=== PATIENT | female | born 1990 | race Two or more races ===

== ENCOUNTER 2016-05-19 16:55 | Inpatient (IN) | payer OTHER ==
--- NOTE | 2016-05-19 17:34 | PDOC ---
History of Present Illness - General History Source: Care Provider, EMS, Other Exam Limitations: No Limitations - History of Present Illness Initial Comments: 05/19/16 18:16 The patient is a 26 year old female, (accompanied by health aide), with a significant past history of seizures, TBI, severe intellectual disabilities, autism, gait disorder and polycystic ovaries, presenting to the ED for extremity swelling and sob. She was recently admitted at [facility] for increase amount of seizures and was admitted for EEG monitoring and was discharged on at the time of discharge patient had arm swelling due to infiltrated IV. As per aid, the swelling has been persistent and did not go down with elevation. Also aid noticed bilateral feet swelling. Aid thought patient had difficulty breathing as aide describes it taking a deep breath before she eats/sits and various other activities. History was obtained by patients health aides. As per the patients aide, the patients nurse suggested she be brought to the ED for bilateral LE swelling. Patient sometiems speaks random words but does not realyl answer questions. As per aide no recent fevers, chills, loss of appetite, cough, abdominal pain, nausea vomiting, diarrhea. Patient seems to be her baseline mental status. PCP: Dr. Marina Menjivar, [facility] <Aleah Kumar - Last Filed: 05/19/16 18:15> <Nitish Ortiz - Last Filed: 05/24/16 09:48> - General Chief Complaint: Edema Stated Complaint: SWELLING HANDS AND FEET Time Seen by Provider: 05/19/16 17:21 Past History <Aleah Kumar - Last Filed: 05/19/16 18:15> - Past Medical History Seizures: Yes - Surgical History Abdominal Surgery: Yes - Psycho/Social/Smoking Cessation Hx Anxiety: No Suicidal Ideation: No Smoking History: Never smoked Hx Alcohol Use: No Drug/Substance Use Hx: No Substance Use Type: None <Nitish Ortiz - Last Filed: 05/24/16 09:48> - Past Medical History Allergies/Adverse Reactions: Allergies Allergy/AdvReac Type Severity Reaction Status Date / Time strawberry Allergy Hives Verified 05/19/16 18:19 Home Medications: Ambulatory Orders Acetaminophen [Tylenol] 650 mg PO QID PRN 05/19/16 Benztropine Mesylate [Cogentin -] 1 mg PO BID 05/19/16 Cholecalciferol (Vitamin D3) [Vitamin D3] 2,000 unit PO DAILY 05/19/16 Clobazam [Onfi -] 10 mg PO BID 05/19/16 Docusate Sodium [Colace -] 200 mg PO HS 05/19/16 Haloperidol [Haldol -] 2 mg PO DAILY 05/19/16 Haloperidol [Haldol -] 5 mg PO DAILY 05/19/16 Lacosamide [Vimpat -] 200 mg PO DAILY 05/19/16 Levetiracetam [Keppra Oral Solution -] 22.5 ml PO BID 05/19/16 Levonorgestrel 0 mg PO DAILY 05/19/16 Metformin HCl [Glucophage] 1,000 mg PO BID 05/19/16 Polyethylene Glycol 3350 [Miralax 119 gm Btl -] 17 gm PO DAILY 05/19/16 Pyridoxine HCl (B-6) [Vitamin B6 -] 50 mg PO DAILY 05/19/16 Salicylic Acid [Selsun Blue] 325 ml TP BID 05/19/16 Thiamine HCl [B-1] 100 mg PO BID 05/19/16 Topiramate 200 mg PO BID 05/19/16 Vits A and D/White Pet/Lanolin [Desitin Clear Ointment] 99 gm TP BID 05/19/16 Rivaroxaban [Xarelto] 15 mg PO BID #42 tab.ds.pk 05/21/16 Rivaroxaban [Xarelto] 20 mg PO DAILY #30 tab.ds.pk 05/21/16 Review of Systems - Review of Systems Able to Perform ROS?: No Comments:: 05/19/16 18:16 Unable to obtain. <Aleah Kumar - Last Filed: 05/19/16 18:15> *Physical Exam - Physical Exam Comments: 05/19/16 18:16 GENERAL: The patient is awake, alert, looking around Nontoxic - in no acute distress. HEAD: Normocephalic, atraumatic. EYES: extraocular movements intact, sclera anicteric, conjunctiva clear. ENT: Normal voice, Moist mucous membranes, hypertrophic gums NECK: Normal range of motion, supple LUNGS: Breath sounds equal, clear to auscultation bilaterally HEART: Regular rate and rhythm, normal S1 and S2 without murmur, rub or gallop. ABDOMEN: Soft, nontender, normoactive bowel sounds. No guarding, no rebound. . No CVA tenderness EXTREMITIES: Normal range of motion, minimal edema of RUE, some ecchymotic olmos on R a/c, no tenderness, minimal edmea of b/l feet, no edema of lower extremities otherwise, negative homans sign. NEUROLOGICAL: No facial assymetry, moving all 4 extremities spontaneously and symmetrically PSYCH: unable to assess, SKIN: Warm, Dry, normal turgor, <Aleah Kumar - Last Filed: 05/19/16 18:15> ED Treatment Course - LABORATORY CBC & Chemistry Diagram: 05/21/16 06:30 05/21/16 06:30 <Nitish Ortiz - Last Filed: 05/24/16 09:48> Medical Decision Making - Medical Decision Making 05/19/16 17:30 26y F hx of tbi, intractible seizures, sent to the ED for evaluation of swelling of her R arm and b/l feet. Pt was recently at [facility] for evaluation of increasing falls and intractible seizures, was d/c'd back to to her facility on 05/17, she did have iv infilration with arm swelling of R arm, since then her swelling hasnt decreased substantially even with elevation. The patients aide also noticed that the pt had a couple of episodes where she was breathing more deeply than usual - no associated tachypnea, cough, fever/chills or other obvious dicomfort. case discussed with dr. Szymanski in the ED at [facility] 05/09 - admitted to [facility] ER - hx of TBI at 2, transferred by neuro clinic for evaluation to ED, for admission and evaluation increased falls/ intractible seizures. Pt was admitted for monitoring, had video eeg with +seizure activity. her dilantin level was titrated up. last lab work on 05/17 showed nromal cbc, cmp showd cl 112, bicarb 21, ca slightly low, alb slightly low, dilantin level of 8.8 05/19/16 17:40 suspect her arm edema is secondary to IV infiltration. will ck US to r/o dvt no appreciable swelling of the LE. will ck labs to r/o anemia, metabolic dernagement, cxr to r/o pna pts vitals are normal here, no apparent respiraotry distress if negative will dc back to her facility with pmd fu. 05/19/16 18:41 case was discussed with HCP Eugenia Alvarez (aunt) if any positive results, will have dr. montague notify the aunt will sign the patient out to dr. montague to reassess and disposition the patient 05/19/16 19:03 <Nitish Ortiz - Last Filed: 05/24/16 09:48> *DC/Admit/Observation/Transfer - Attestations Scribe Attestion: 05/19/16 18:17 Documentation prepared by CON Shah, acting as emergency medical service manager for Nitish Ortiz MD. <Aleah Kumar - Last Filed: 05/19/16 18:15> <Nitish Ortiz - Last Filed: 05/24/16 09:48> Diagnosis at time of Disposition: Acute thrombosis of basilic vein - Discharge Dispostion Disposition: HOME - Prescriptions
--- NOTE | 2016-05-19 20:03 | PDOC ---
*Physical Exam - Vital Signs Last Vital Signs Temp Pulse Resp BP Pulse Ox 99.1 F 89 22 126/95 100 05/19/16 16:55 05/19/16 16:55 05/19/16 16:55 05/19/16 16:55 05/19/16 16:55 <Pia Gonzalez - Last Filed: 05/19/16 20:37> - Vital Signs Last Vital Signs Temp Pulse Resp BP Pulse Ox 99.1 F 89 22 126/95 100 05/19/16 16:55 05/19/16 16:55 05/19/16 16:55 05/19/16 16:55 05/19/16 16:55 <Jaden Griffith - Last Filed: 05/19/16 23:31> ED Treatment Course - RADIOLOGY Radiograph Interpretation: 05/19/16 20:28 EXAM: VENOUS DUPLEX was read by Lisa Greenfield D.O. at 19:56 EST EXAM UNILATERAL: RIGHT ARM REASON FOR EXAM: Pain Swelling COMPARISON: None FINDINGS: Transverse and longitudinal views obtained. There is thrombus within the basilic vein to proximal ulnar artery in the proximal forearm. There is normal color flow filling the vessels with compressibility and phasic flow within the jugular, axillary, brachial, radial veins. Limited visibility of the superficial cephalic vein. Good flow and phasicity detected within the subclavian vein. There is no suspicious solid or cystic mass. IMPRESSION: Positive thrombus within the superficial basilic vein to proximal ulnar artery in the proximal RIGHT forearm. EXAM: Portable chest x-ray was read by Jaswant Scott MD at 20:33 EST HISTORY:Shortness of breath FINDINGS:Portable AP view of the chest is available. A battery overlies the left thorax. The heart and midline structures are normal and the lungs appear clear. No acute osseous abnormality is seen. IMPRESSION: No visible active disease <Pia Gonzalez - Last Filed: 05/19/16 20:37> - LABORATORY CBC & Chemistry Diagram: 05/19/16 22:38 05/19/16 22:38 <Jaden Griffith - Last Filed: 05/19/16 23:31> Medical Decision Making - Medical Decision Making 05/19/16 20:03 I have discussed the patient's case with hospitalist, Dr. Solis, who will accept the patient's admission after labs are obtained. Dr. Solis advises to obtain the BUN and Creatinine before administering Lovenox. <Pia Gonzalez - Last Filed: 05/19/16 20:37> *DC/Admit/Observation/Transfer - Attestations Scribe Attestion: 05/19/16 20:28 Documentation prepared by Pia Gonzalez, acting as medical office administrator for Jaden Griffith MD, MD <Pia Gonzalez - Last Filed: 05/19/16 20:37> - Discharge Dispostion Admit: Yes <Jaden Griffith - Last Filed: 05/19/16 23:31> Diagnosis at time of Disposition: Acute thrombosis of basilic vein Qualifiers: Laterality: right Qualified Code(s): I82.611 - Acute embolism and thrombosis of superficial veins of right upper extremity - Discharge Dispostion Condition at time of disposition: Stable
[2016-05-19 22:42] LABS: VENOUS PH 7.36 (7.31-7.41)
[2016-05-19 22:43] LABS: VENOUS BLOOD GAS HCO3 24.6 meq/L (22-29)
[2016-05-19 22:57] LABS: BASOPHIL 1.3 % (0-2.0); EOSINOPHIL 0.4 % (0-4.5); MCH 31.7 pg (25.7-33.7); MCHC 33.7 g/dl (32.0-36.0); MEAN PLT VOLUME 7.2 fl (7.5-11.1); PLATELET COUNT 225 K/MM3 (134-434); WHITE BLOOD COUNT 6.9 K/mm3 (4.0-10.0)
[2016-05-19 23:01] LABS: INR 1.09 (0.82-1.09)
[2016-05-19 23:03] LABS: ACTIVATED PTT 31.7 SECONDS (26.9-34.4)
[2016-05-19 23:11] LABS: ALBUMIN 3.4 g/dl (3.4-5.0); ANION GAP 10 (8-16); BILIRUBIN,TOTAL 0.3 mg/dL (0.2-1.0); CALCIUM 8.1 mg/dL (8.5-10.1); CO2 24 mmol/L (21-32); CREATININE 0.6 mg/dL (0.55-1.02); GLUCOSE,RANDOM 71 mg/dL (74-106); SGOT/AST 18 U/L (15-37); SGPT/ALT 25 U/L (12-78)
[2016-05-19 23:12] LABS: ALK PHOS 88 U/L (45-117); TOT PROT 6.7 g/dl (6.4-8.2)
[2016-05-19] MEDS ORDERED: ENOXAPARIN NA (PORCINE) 60 MG/0.6 ML DISP.SYRIN SQ SCH (23:30)
[2016-05-19] MEDS ORDERED: ENOXAPARIN NA (PORCINE) 60 MG/0.6 ML DISP.SYRIN SQ ONE (23:30)
[2016-05-19] MEDS ORDERED: LORAZEPAM CARPU-JECT 2 MG/ML DISP.SYRIN IVPUSH PRN (23:50)
[2016-05-20] MEDS ORDERED: ENOXAPARIN NA (PORCINE) 60 MG/0.6 ML DISP.SYRIN SQ ONE (00:02)
[2016-05-20] MEDS ORDERED: ONDANSETRON 4 MG/2 ML VIAL IVPB PRN (00:06)
[2016-05-20] MEDS ORDERED: ACETAMINOPHEN 325 MG TABLET (FP) PO PRN (00:08)
--- NOTE | 2016-05-20 00:17 | HP ---
Admitting History and Physical - Admission Chief Complaint: swelling to R arm, lower leg swelling History of Present Illness: 26 yo f from [facility] hx of seizure disorder(VNS placement), PCOS, TBI , severe intellectual disabilities, autism, gait disorder and polycystic ovaries , presenting to the ED for extremity swelling and sob. Patient unable to give history. Per medical documentation She was recently admitted at [facility] for increase amount of seizures and was admitted for EEG monitoring and was discharged on 05/17 at the time of discharge patient had arm swelling due to infiltrated IV. As per aid, the swelling has been persistent and did not go down with elevation. Also aid noticed bilateral feet swelling. Aid thought patient had difficulty breathing as aide describes it taking a deep breath before she eats/sits and various other activities. Per HCP patient had fall 2 weeks ago hit her head and lost a tooth. She states that it was not a drop seizure. PSH/PMH-HCP Eugenia Alvarez (aunt) Social- Lives at skilled nursing Famhx- Unobtainable HCP Eugenia Alvarez (aunt) ROS unable to obtain Physical: General- in nad, alert HENT- at/nc, arik, neck supple, trachea midline RESP- no cough, no ronchi, no wheeze no rales, no accessory muscle use CARD- s1s2 heard, no jvd, R forearm and hand swelling, LLE swelling, extremity pulses +2, toes downgoing Skin- clean, intact PSych- intellectual disability, says 1 or 2 words but not conversational Neuro- alert and oriented Gi-soft non-tender, no rebound, no guarding, no distention, no masses Prob list Seizure disorder Thrombus in R forearm Autism Pcos Arm swelling Leg swelling Imaging: Duplex R arm positive for thrombus in superficial basilic vein proximal ulnar vein CXR negative for process EKG pending CTH pending Duplex of BLE pending CTA chest pending A/P 26 yo f from [facility] with hx of seizure disorder(VNS placement), PCOS , TBI, severe intellectual disabilities, autism, gait disorder and polycystic ovaries, presenting to the ED for extremity swelling and sob admitted for evaluation of their emergent condition 1.Thrombus in R forearm, DVT bilateral LE R forearm, and bilateral lower extremity swelling Given Lovenox in ER Leg and Arm elevation, Pain control Continue Lovenox Vascular consult Heme consult 2. Seizure disorder Seizure precautions Continue home meds Check Keppra levels 3. Autism 4. PCOS Hold Metformin 5. Ambulation problem, ?dVt Per patient's HCAP, patient had fall 2 weeks ago and hit head, she has been having trouble walking since. Will check CTH r/o acute pathology Found to have bilateral dvt 6. Reported SOB, ?PE CXR appears negative for acute process Found to have bilateral dvt in legs, and thrombus in forearm which raises concern for PE Wells score moderate Will do CTA Continue Lovenox FEn Reg diet DVT prophy OOB, Full dose Lovenox Dispo- Requires >2mn stay for R forearm thrombus History Source: Significant Other, Medical Record Limitations to Obtaining History: No Limitations - Smoking History Smoking history: Never smoked Have you smoked in the past 12 months: No - Alcohol/Substance Use Hx Alcohol Use: No Home Medications - Allergies Allergies/Adverse Reactions: Allergies Allergy/AdvReac Type Severity Reaction Status Date / Time strawberry Allergy Hives Verified 05/19/16 18:19 - Home Medications Home Medications: Ambulatory Orders Acetaminophen [Tylenol] 650 mg PO QID PRN 05/19/16 Benztropine Mesylate [Cogentin -] 1 mg PO BID 05/19/16 Cholecalciferol (Vitamin D3) [Vitamin D3] 2,000 unit PO DAILY 05/19/16 Clobazam [Onfi -] 10 mg PO BID 05/19/16 Docusate Sodium [Colace -] 200 mg PO HS 05/19/16 Haloperidol [Haldol -] 2 mg PO DAILY 05/19/16 Haloperidol [Haldol -] 5 mg PO DAILY 05/19/16 Lacosamide [Vimpat -] 200 mg PO DAILY 05/19/16 Levetiracetam [Keppra Oral Solution -] 22.5 ml PO BID 05/19/16 Levonorgestrel 0 mg PO DAILY 05/19/16 Metformin HCl [Glucophage] 1,000 mg PO BID 05/19/16 Polyethylene Glycol 3350 [Miralax (For Daily Use) -] 17 gm PO DAILY 05/19/16 Pyridoxine HCl (B-6) [Vitamin B6] 50 mg PO DAILY 05/19/16 Salicylic Acid [Selsun Blue] 325 ml TP BID 05/19/16 Thiamine HCl [B-1] 100 mg PO BID 05/19/16 Topiramate 200 mg PO BID 05/19/16 Vits A and D/White Pet/Lanolin [Desitin Clear Ointment] 99 gm TP BID 05/19/16 Physical Examination Vital Signs: Vital Signs Temperature 99.1 F 05/19/16 16:55 Pulse Rate 89 05/19/16 16:55 Respiratory Rate 22 05/19/16 16:55 Blood Pressure 126/95 05/19/16 16:55 O2 Sat by Pulse Oximetry (%) 100 05/19/16 16:55 Labs: CBC, BMP 05/19/16 22:38 05/19/16 22:38 Visit type - Emergency Visit Emergency Visit: Yes ED Registration Date: 05/19/16 Care time: The patient presented to the Emergency Department on the above date and was hospitalized for further evaluation of their emergent condition. - New Patient This patient is new to me today: Yes Date on this admission: 05/20/16 - Critical Care Critical Care patient: No
[2016-05-20 03:21] VITALS: BMI 24.3
[2016-05-20] MEDS ORDERED: HALOPERIDOL 5 MG TABLET (FP) PO SCH ×2 (07:00→20:00)
[2016-05-20 08:38] LABS: ALBUMIN 3.1 g/dl (3.4-5.0); ANION GAP 11 (8-16); CALCIUM 8.2 mg/dL (8.5-10.1); CO2 24 mmol/L (21-32); GLUCOSE,RANDOM 66 mg/dL (74-106)
[2016-05-20 08:41] LABS: ALK PHOS 83 U/L (45-117); BILIRUBIN,TOTAL 0.3 mg/dL (0.2-1.0); CREATININE 0.5 mg/dL (0.55-1.02); SGOT/AST 27 U/L (15-37); SGPT/ALT 25 U/L (12-78); TOT PROT 6.2 g/dl (6.4-8.2)
[2016-05-20] MEDS: ENOXAPARIN NA (PORCINE) 60 MG/0.6 ML DISP.SYRIN SQ SCH ×2 (09:54→21:54)
[2016-05-20] MEDS: PYRIDOXINE HCL (B-6) 50 MG TABLET (FP) PO SCH (09:54)
[2016-05-20] MEDS: CHOLECALCIFEROL (VITAMIN D3) 1,000 UNIT TABLET (FP) PO SCH (09:54)
[2016-05-20] MEDS: THIAMINE HCL 100 MG TABLET (FP) PO SCH ×2 (09:54→21:54)
[2016-05-20] MEDS: cloBAZam 10 MG TABLET PO SCH ×2 (09:54→21:54)
[2016-05-20] MEDS: TOPIRAMATE 200 MG TABLET (FP) PO SCH ×2 (09:55→22:35)
[2016-05-20] MEDS: BENZTROPINE MESYLATE 1 MG TABLET (FP) PO SCH ×2 (09:56→22:35)
[2016-05-20] MEDS: HALOPERIDOL 2 MG TABLET PO SCH (09:57)
[2016-05-20] MEDS: levETIRAcetam 500 MG/5 ML ORAL SOLUTION (UNIT-DOSE CUPS) PO SCH ×2 (09:57→22:43)
[2016-05-20] MEDS: POLYETHYLENE GLYCOL 3350 119 GM BTL PO SCH (09:58)
[2016-05-20] MEDS ORDERED: ENOXAPARIN NA (PORCINE) 60 MG/0.6 ML DISP.SYRIN SQ SCH (10:00)
[2016-05-20] MEDS ORDERED: levETIRAcetam 500 MG/5 ML ORAL SOLUTION (UNIT-DOSE CUPS) PO SCH (10:00)
[2016-05-20] MEDS ORDERED: LACOSAMIDE 50 MG TABLET PO SCH (10:00)
--- NOTE | 2016-05-20 13:41 | PN ---
Progress Note (short form) - Note Progress Note: Vascular Surgery Pt seen and examined. Studies show right basilic vein SVT Pt also has bilateral lower ext DVT's, however I cannot open the study on the computer. Pending CTA chest to rule out PE Anticoagulation for DVT in bilateral lower ext for 6 months. Warm compresses to right forearm for SVT. Will follow. aMyo Camarena dO
--- NOTE | 2016-05-20 14:31 | PN ---
Teaching Attending Note Name of Resident: Amber Neal ATTENDING PHYSICIAN STATEMENT I saw and evaluated the patient. I reviewed the resident's note and discussed the case with the resident. I agree with the resident's findings and plan as documented. SUBJECTIVE:non-verbal. resting in bed comfortable OBJECTIVE: Last Vital Signs Temp Pulse Resp BP Pulse Ox 97.4 F L 78 18 111/76 99 05/20/16 14:00 05/20/16 14:00 05/20/16 14:00 05/20/16 10:00 05/20/16 03:19 General NAD CV S1 S2 RRR no murmur/rub/gallop Extremities swelling limited to the R hand, no tenderness along the arm B/L LE no swelling of the legs, non tender negative Tawanna sign ASSESSMENT AND PLAN: 26yo F with PMH autism, seizure, TBI, PCOS presented to the ER and was admitted for further evaluation of their emergent condition 1. B/L LE DVT- extensive B/L DVT and superficial DVT of the RUE. possibly induced from limited mobility and hospital stay (unaware of length of recent hospital course). will d/c CTA of the chest as determining if pt has PE would not change our management at this time. no signs of R heart strain. hemodynamically stable. saturating 98% on RA. no tachycardia. agree with vascular at this time would anticoagulate at this time. no need for surgical intervention. on full dose lovenox. will determine if this will be able to administered at facility vs change to NOAC. awaiting heme input. she would also benefit from hypercoagulable workup as outpatient 2. Seizure- no seizure like activity witnessed. keppra levels pending (keppra dose recently adjusted), seizure precautions. cont home regimen 3. PCOS- will resume metformin as no need for contrast at this time 4. autism
[2016-05-20 14:33] LABS: EOSINOPHIL 0.5 % (0-4.5); MCH 31.6 pg (25.7-33.7); MCHC 33.3 g/dl (32.0-36.0); MEAN CELL VOLUME 94.9 fl (80-96); MEAN PLT VOLUME 7.6 fl (7.5-11.1); NEUTROPHILS 48.3 % (42.8-82.8); PLATELET COUNT 205 K/MM3 (134-434); RDW 14.2 % (11.6-15.6); WHITE BLOOD COUNT 5.9 K/mm3 (4.0-10.0)
--- NOTE | 2016-05-20 14:33 | PN ---
Physical Exam: SUBJECTIVE: Patient seen and examined at bedside this am. Patient non verbal, aide by her side. She denies any events overnight. Shortness of breath has improved. Swelling of feet has decreased as well as right arm erythema, according to the aide. Still with right hand swelling. Denies chest pain, fever , chills. n, v. OBJECTIVE: Vital Signs Period Temp Pulse Resp BP Sys/Cui Pulse Ox Last 24 Hr 97.4 F-98.1 F 77-84 18-18 101-122/61-83 99-100 GENERAL: The patient is awake, alert, mental retardation, cognitive impairment, in no acute distress. HEAD: Normal with no signs of trauma. EYES: PERRL, extraocular movements intact, sclera anicteric, conjunctiva clear. No ptosis. ENT: moist mucous membranes, drooling. LUNGS: Breath sounds equal, clear to auscultation bilaterally, no wheezes, no crackles, no accessory muscle use. HEART: Regular rate and rhythm, S1, S2 without murmur, rub or gallop. ABDOMEN: Soft, nontender, nondistended, normoactive bowel sounds, no guarding, no rebound, no hepatosplenomegaly, no masses. EXTREMITIES: 2+ pulses, warm, well-perfused, Right hand edema, no erythema, did not appreciate LE edema or erythema NEUROLOGICAL: Cranial nerves II through XII grossly intact. Normal speech, gait not observed. SKIN: Warm, dry, normal turgor, no rashes or lesions noted CBC, BMP 05/20/16 06:38 Active Medications Generic Name Dose Route Start Last Admin Trade Name Clive PRN Reason Stop Dose Admin Acetaminophen 650 mg 05/20/16 00:08 Tylenol - PO Q4H PRN FEVER OR PAIN Benztropine Mesylate 1 mg 05/20/16 10:00 05/20/16 09:56 Cogentin - PO 1 mg BID JADE Administration Cholecalciferol 2,000 unit 05/20/16 10:00 05/20/16 09:54 Vitamin D3 - PO 2,000 unit DAILY JADE Administration Clobazam 10 mg 05/20/16 10:00 05/20/16 09:54 Onfi - PO 10 mg BID JADE Administration Docusate Sodium 200 mg 05/20/16 22:00 Colace - PO HS JADE Enoxaparin Sodium 60 mg 05/20/16 10:00 05/20/16 09:54 Lovenox - SQ 60 mg BID [facility] Administration Haloperidol 2 mg 05/20/16 10:00 05/20/16 09:57 Haldol - PO 2 mg DAILY JADE Administration Haloperidol 5 mg 05/20/16 20:00 Haldol - PO DAILY@2000 [facility] Lacosamide 200 mg 05/20/16 10:00 05/20/16 11:35 Vimpat - PO Not Given BID [facility] Levetiracetam 1,500 mg 05/20/16 10:00 05/20/16 09:57 Keppra Oral Solution - PO 1,500 mg BID [facility] Administration Lorazepam 1 mg 05/19/16 23:50 Ativan Injection - IVPUSH Q6H PRN ANXIETY Ondansetron HCl 4 mg 05/20/16 00:06 Zofran Injection IVPB DAILY PRN NAUSEA AND/OR VOMITING Polyethylene Glycol 17 gm 05/20/16 10:00 05/20/16 09:58 Miralax (For Daily Use) - PO Not Given DAILY [facility] Pyridoxine HCl 50 mg 05/20/16 10:00 05/20/16 09:54 Vitamin B6 - PO 50 mg DAILY [facility] Administration Thiamine HCl 100 mg 05/20/16 10:00 05/20/16 09:54 Vitamin B1 - PO 100 mg BID [facility] Administration Topiramate 200 mg 05/20/16 10:00 05/20/16 09:55 Topamax - PO 200 mg BID JADE Administration ASSESSMENT/PLAN: 26 year old female with PMHx of seizures, traumatic brain injury, autism, gait disorder, presented with right hand and b/l leg swelling. Admitted for b/l DVT found on doppler. 1. Bilateral DVT : -Vascular study indicates: partially occlusive thrombus of right common femoral vein and greater saphenous vein and a left partial occlusive thrombus of left common femoral vein as well. -on full dose lovenox 60mg sq bid; consider noac -anticoagulation for six months after discharge -f/u with as outpatient for coagulation workup -was seen by vascular surgery; no need for further treatment at this time, such as thrombectomy 2. Superficial Vein thrombosis: -right basilar vein svt -warm compresses 3. Seizure disorder: -topamax 200mg po bid -keppra 1500mg po bid -vimpat 200mg soln bid 4. PCOS: -hold metformin 5. Anxiety: -ativan 1mg IV push q6h prn FEN: Fluids: n/a Electrolytes: wnl Diet: puree VTE prophylaxis: on Lovenox full dose Disposition: possible dc tommorrow on anticoagulation; will await heme consult Problem List - Problems (1) Acute thrombosis of basilic vein Code(s): I82.619 - ACUTE EMBOLISM AND THROMBOSIS OF SUPERFIC VN UNSP UP EXTREM Qualifiers: Laterality: right Qualified Code(s): I82.611 - Acute embolism and thrombosis of superficial veins of right upper extremity (2) Facial contusion Code(s): S00.83XA - CONTUSION OF OTHER PART OF HEAD, INITIAL ENCOUNTER Qualifiers: Encounter type: initial encounter Qualified Code(s): S00.83XA - Contusion of other part of head, initial encounter (3) Seizures Code(s): R56.9 - UNSPECIFIED CONVULSIONS (4) Dvt femoral (deep venous thrombosis) Code(s): I82.419 - ACUTE EMBOLISM AND THROMBOSIS OF UNSPECIFIED FEMORAL VEIN Visit type - Emergency Visit Emergency Visit: Yes ED Registration Date: 05/19/16 Care time: The patient presented to the Emergency Department on the above date and was hospitalized for further evaluation of their emergent condition. - New Patient This patient is new to me today: Yes Date on this admission: 05/20/16 - Critical Care Critical Care patient: No - Discharge Referral Referred to [facility] Med [facility] No
[2016-05-20] MEDS: metFORMIN HCL 500 MG TABLET (FP) PO SCH (17:40)
--- NOTE | 2016-05-20 20:18 | CONSULT ---
Consult - text type - Consultation Consultation Note: The patient is a 26 year old female, (accompanied by health aide), with a significant past history of seizures, TBI, severe intellectual disabilities, autism, gait disorder and polycystic ovaries, presenting to the ED for extremity swelling and sob. She was recently admitted at [facility] for increase amount of seizures and was admitted for EEG monitoring and was discharged on at the time of discharge patient had arm swelling due to infiltrated IV. also developed bilateral feet swelling. Patient sometiems speaks random words but does not realyl answer questions. As per records no recent fevers, chills, loss of appetite, cough, abdominal pain , nausea vomiting, diarrhea. Patient seems to be her baseline mental status. - Past Medical History Seizures: Yes traumatic brain injury - Surgical History Abdominal Surgery: Yes - Psycho/Social/Smoking Cessation Hx Smoking History: Never smoked - Past Medical History Allergies/Adverse Reactions: Allergies Allergy/AdvReac Type Severity Reaction Status Date / Time strawberry Allergy Hives Verified 05/19/16 18:19 Current Medications Acetaminophen (Tylenol -) 650 mg PO Q4H PRN PRN Reason: FEVER OR PAIN Benztropine Mesylate (Cogentin -) 1 mg PO BID [facility] Last Admin: 05/20/16 22:35 Dose: 1 mg Cholecalciferol (Vitamin D3 -) 2,000 unit PO DAILY [facility] Last Admin: 05/20/16 09:54 Dose: 2,000 unit Clobazam (Onfi -) 10 mg PO BID [facility] Last Admin: 05/20/16 21:54 Dose: 10 mg Docusate Sodium (Colace -) 200 mg PO HS [facility] Last Admin: 05/20/16 21:54 Dose: 200 mg Enoxaparin Sodium (Lovenox -) 60 mg SQ BID [facility] Last Admin: 05/20/16 21:54 Dose: 60 mg Haloperidol (Haldol -) 2 mg PO DAILY [facility] Last Admin: 05/20/16 09:57 Dose: 2 mg Haloperidol (Haldol -) 5 mg PO DAILY@1999 [facility] Last Admin: 05/20/16 22:35 Dose: 5 mg Lacosamide (Vimpat Liquid -) 200 mg PO BID [facility] Last Admin: 05/20/16 22:34 Dose: 200 mg Levetiracetam (Keppra Oral Solution -) 1,500 mg PO BID [facility] Last Admin: 05/20/16 22:43 Dose: 1,500 mg Lorazepam (Ativan Injection -) 1 mg IVPUSH Q6H PRN PRN Reason: ANXIETY Metformin HCl (Glucophage -) 1,000 mg PO BIDAC [facility] Last Admin: 05/20/16 17:40 Dose: 1,000 mg Ondansetron HCl (Zofran Injection) 4 mg IVPB DAILY PRN PRN Reason: NAUSEA AND/OR VOMITING Polyethylene Glycol (Miralax (For Daily Use) -) 17 gm PO DAILY [facility] Last Admin: 05/20/16 09:58 Dose: Not Given Pyridoxine HCl (Vitamin B6 -) 50 mg PO DAILY [facility] Last Admin: 05/20/16 09:54 Dose: 50 mg Thiamine HCl (Vitamin B1 -) 100 mg PO BID [facility] Last Admin: 05/20/16 21:54 Dose: 100 mg Topiramate (Topamax -) 200 mg PO BID [facility] Last Admin: 05/20/16 22:35 Dose: 200 mg Current Medications Acetaminophen (Tylenol -) 650 mg PO Q4H PRN PRN Reason: FEVER OR PAIN Benztropine Mesylate (Cogentin -) 1 mg PO BID [facility] Last Admin: 05/20/16 22:35 Dose: 1 mg Cholecalciferol (Vitamin D3 -) 2,000 unit PO DAILY [facility] Last Admin: 05/20/16 09:54 Dose: 2,000 unit Clobazam (Onfi -) 10 mg PO BID [facility] Last Admin: 05/20/16 21:54 Dose: 10 mg Docusate Sodium (Colace -) 200 mg PO HS [facility] Last Admin: 05/20/16 21:54 Dose: 200 mg Enoxaparin Sodium (Lovenox -) 60 mg SQ BID [facility] Last Admin: 05/20/16 21:54 Dose: 60 mg Haloperidol (Haldol -) 2 mg PO DAILY [facility] Last Admin: 05/20/16 09:57 Dose: 2 mg Haloperidol (Haldol -) 5 mg PO DAILY@1999 [facility] Last Admin: 05/20/16 22:35 Dose: 5 mg Lacosamide (Vimpat Liquid -) 200 mg PO BID [facility] Last Admin: 05/20/16 22:34 Dose: 200 mg Levetiracetam (Keppra Oral Solution -) 1,500 mg PO BID [facility] Last Admin: 05/20/16 22:43 Dose: 1,500 mg Lorazepam (Ativan Injection -) 1 mg IVPUSH Q6H PRN PRN Reason: ANXIETY Metformin HCl (Glucophage -) 1,000 mg PO BIDAC [facility] Last Admin: 05/20/16 17:40 Dose: 1,000 mg Ondansetron HCl (Zofran Injection) 4 mg IVPB DAILY PRN PRN Reason: NAUSEA AND/OR VOMITING Polyethylene Glycol (Miralax (For Daily Use) -) 17 gm PO DAILY [facility] Last Admin: 05/20/16 09:58 Dose: Not Given Pyridoxine HCl (Vitamin B6 -) 50 mg PO DAILY [facility] Last Admin: 05/20/16 09:54 Dose: 50 mg Thiamine HCl (Vitamin B1 -) 100 mg PO BID [facility] Last Admin: 05/20/16 21:54 Dose: 100 mg Topiramate (Topamax -) 200 mg PO BID [facility] Last Admin: 05/20/16 22:35 Dose: 200 mg Last Vital Signs Temp Pulse Resp BP Pulse Ox 97.9 F 78 20 116/74 98 05/20/16 23:21 05/20/16 23:21 05/20/16 23:21 05/20/16 23:21 05/20/16 20:41 Cor: RSR, No murmurs, No gallops Lungs: Clear to P&A Abd: Soft, Normal bowel sounds, No organomegaly Ext:No significant edema Skin: No rashes, Integument intact no adenopathy no breast masses Abnormal Lab Results 05/20/16 05/20/16 06:38 06:38 Lymphocytes % 42.4 H D Chloride 109 H Creatinine 0.5 L Random Glucose 66 L Calcium 8.2 L Total Protein 6.2 L Albumin 3.1 L A/P 26y F hx of tbi, intractible seizures, sent to the ED for evaluation of swelling of her R arm and b/l feet. Pt was recently at [facility] for evaluation of increasing falls and intractible seizures, was d/c'd back to to her facility on 05/17, she did have iv infilration with arm swelling of R arm RT. UE superficial vein thrombosis and bi;aterapl lower ext. DVT Given multiple clots, patient seems very hypercoagulable --? etiology --? bed ridden state ? thrombophilia ? occult malignancy would consider CT scans c/a/p with contrast will request thrombophilia w/u platelet count normal PT/PTT normal baseline Could consider switching to eliquis, renal, hepatic function, ciaf=gs are normal
[2016-05-20] MEDS ORDERED: DOCUSATE SODIUM 100 MG CAPSULE (FP) PO SCH (22:00)
[2016-05-20] MEDS: LACOSAMIDE 10 MG/1 ML PO SCH (22:34)
[2016-05-21] MEDS: metFORMIN HCL 500 MG TABLET (FP) PO SCH ×2 (06:30→16:07)
[2016-05-21 07:50] LABS: BASOPHIL 0.5 % (0-2.0); EOSINOPHIL 0.4 % (0-4.5); MCH 31.8 pg (25.7-33.7); MCHC 33.8 g/dl (32.0-36.0); MEAN CELL VOLUME 94.1 fl (80-96); NEUTROPHILS 44.4 % (42.8-82.8); PLATELET COUNT 214 K/MM3 (134-434); RDW 13.8 % (11.6-15.6); WHITE BLOOD COUNT 5.9 K/mm3 (4.0-10.0)
[2016-05-21 08:19] LABS: ALBUMIN 3.1 g/dl (3.4-5.0); ANION GAP 9 (8-16); BILIRUBIN,TOTAL 0.2 mg/dL (0.2-1.0); CALCIUM 8.5 mg/dL (8.5-10.1); CO2 26 mmol/L (21-32); CREATININE 0.6 mg/dL (0.55-1.02); GLUCOSE,RANDOM 67 mg/dL (74-106); SGOT/AST 21 U/L (15-37); SGPT/ALT 27 U/L (12-78); TOT PROT 6.2 g/dl (6.4-8.2)
[2016-05-21 08:20] LABS: ALK PHOS 84 U/L (45-117)
[2016-05-21] MEDS ORDERED: PT OWN MED DRAWER 7, Y5N ONE (10:40)
[2016-05-21] MEDS: THIAMINE HCL 100 MG TABLET (FP) PO SCH (10:49)
[2016-05-21] MEDS: levETIRAcetam 500 MG/5 ML ORAL SOLUTION (UNIT-DOSE CUPS) PO SCH (10:49)
[2016-05-21] MEDS: BENZTROPINE MESYLATE 1 MG TABLET (FP) PO SCH (10:49)
[2016-05-21] MEDS: PYRIDOXINE HCL (B-6) 50 MG TABLET (FP) PO SCH (10:49)
[2016-05-21] MEDS: HALOPERIDOL 2 MG TABLET PO SCH (10:49)
[2016-05-21] MEDS: CHOLECALCIFEROL (VITAMIN D3) 1,000 UNIT TABLET (FP) PO SCH (10:50)
[2016-05-21] MEDS: ENOXAPARIN NA (PORCINE) 60 MG/0.6 ML DISP.SYRIN SQ SCH (10:50)
[2016-05-21] MEDS: cloBAZam 10 MG TABLET PO SCH (10:50)
[2016-05-21] MEDS: LACOSAMIDE 10 MG/1 ML PO SCH (10:51)
[2016-05-21] MEDS: POLYETHYLENE GLYCOL 3350 119 GM BTL PO SCH (10:51)
[2016-05-21] MEDS: TOPIRAMATE 200 MG TABLET (FP) PO SCH (10:53)
--- NOTE | 2016-05-21 13:12 | DS ---
Physical Exam: SUBJECTIVE:Patient seen and examined at bedside this am. Patient non verbal. Nurse denies any events overnight. Shortness of breath has improved. Swelling of feet has decreased as well as right arm erythema, according to nurse. Denies chest pain, fever, chills. n, v. OBJECTIVE: Vital Signs Period Temp Pulse Resp BP Sys/Cui Pulse Ox Last 24 Hr 97.4 F-97.9 F 64-81 18-20 101-138/52-99 96-98 PHYSICAL EXAM GENERAL: The patient is awake, alert, mental retardation, cognitive impairment, in no acute distress. HEAD: Normal with no signs of trauma. EYES: sclera anicteric, conjunctiva clear. No ptosis. ENT: moist mucous membranes, drooling. LUNGS: Breath sounds equal, clear to auscultation bilaterally, no wheezes, no crackles, no accessory muscle use. HEART: Regular rate and rhythm, S1, S2 without murmur, rub or gallop. ABDOMEN: Soft, nontender, nondistended, normoactive bowel sounds, no guarding, no rebound, no hepatosplenomegaly, no masses. EXTREMITIES: 2+ pulses, warm, well-perfused, Right hand edema decreased greatly , no erythema, NO lower extremity erythema or edema bilaterally NEUROLOGICAL: mental retardation, gait not observed. SKIN: Warm, dry, normal turgor, no rashes or lesions noted LABS CBC, BMP 05/21/16 06:30 05/21/16 06:30 Current Medications Generic Name Dose Route Start Last Admin Trade Name Freq PRN Reason Stop Dose Admin Acetaminophen 650 mg 05/20/16 00:08 Tylenol - PO Q4H PRN FEVER OR PAIN Benztropine Mesylate 1 mg 05/20/16 10:00 05/21/16 10:49 Cogentin - PO 1 mg BID JADE Administration Cholecalciferol 2,000 unit 05/20/16 10:00 05/21/16 10:50 Vitamin D3 - PO 2,000 unit DAILY JADE Administration Clobazam 10 mg 05/20/16 10:00 05/21/16 10:50 Onfi - PO 10 mg BID [facility]ADE Administration Docusate Sodium 200 mg 05/20/16 22:00 05/20/16 21:54 Colace - PO 200 mg HS [facility] Administration Enoxaparin Sodium 60 mg 05/20/16 10:00 05/21/16 10:50 Lovenox - SQ 60 mg BID [facility] Administration Haloperidol 2 mg 05/20/16 10:00 05/21/16 10:49 Haldol - PO 2 mg DAILY [facility] Administration Haloperidol 5 mg 05/20/16 20:00 05/20/16 22:35 Haldol - PO 5 mg DAILY@2000 [facility] Administration Lacosamide 200 mg 05/20/16 22:00 05/21/16 10:51 Vimpat Liquid - PO 200 mg BID [facility] Administration Levetiracetam 1,500 mg 05/20/16 10:00 05/21/16 10:49 Keppra Oral Solution - PO 1,500 mg BID [facility] Administration Lorazepam 1 mg 05/19/16 23:50 Ativan Injection - IVPUSH Q6H PRN ANXIETY Metformin HCl 1,000 mg 05/20/16 16:30 05/21/16 06:30 Glucophage - PO 1,000 mg BIDAC [facility] Administration Ondansetron HCl 4 mg 05/20/16 00:06 Zofran Injection IVPB DAILY PRN NAUSEA AND/OR VOMITING Polyethylene Glycol 17 gm 05/20/16 10:00 05/21/16 10:51 Miralax (For Daily Use) - PO Not Given DAILY [facility] Pyridoxine HCl 50 mg 05/20/16 10:00 05/21/16 10:49 Vitamin B6 - PO 50 mg DAILY [facility] Administration Thiamine HCl 100 mg 05/20/16 10:00 05/21/16 10:49 Vitamin B1 - PO 100 mg BID [facility] Administration Topiramate 200 mg 05/20/16 10:00 05/21/16 10:53 Topamax - PO 200 mg BID [facility] Administration HOSPITAL COURSE: Date of Admission:05/19/16 Date of Discharge: 05/21/16 26 year old female with a past medical history seizures, traumatic brain injury , autism, gait disorder, presented with right hand and bilateral leg swelling. Patient was recently admitted the week before to [facility] due to increased seizure activity. There her keppra dose was increased. When discharged from [facility], patients aide noticed hand swelling/leg swelling, along with increased shortness of breath. She was brought into the hospital and found to have bilateral deep vein thrombosis. CTA was not done for further investigation of possible pulmonary embolism. This would not have changed our management. Vascular study indicated partially occlusive thrombus of the right common femoral vein and greater saphenous vein. There was also a left partial occlusive thrombus of the left common femoral vein as well. A Admitted for b/l DVT found on doppler. Duplex scan of right upper extremity showed superficial vein thrombosis of the right basilar vein. Patient was started on full dose lovenox for DVT. Patient was seen by vascular medicine, no surgical action deemed necessary. Patient was also seen by specialist, hematology/oncology. We recommend patient get evaluated as an outpatient for hypercoagulable state. These could be due to her immobilization or unknown history of clotting disease. Patient platelet count, PT/PTT were with in normal limits. We are sending patient home on xarelto. Patient INR is <3.0. She will be started on a regimen of 15mg bid for 21 day. After 20mg qd for six months. While in hospital patient did not experience and seizure, controlled with home medications listed above. She did have a head CT heres, which was negative. NO acute pathology. Minutes to complete discharge: 45 <Amber Neal - Last Filed: 05/21/16 13:23> Physical Exam: ATTENDING PHYSICIAN STATEMENT I saw and evaluated the patient. I reviewed the resident's note and discussed the case with the resident. I agree with the resident's findings and plan as documented. SUBJECTIVE: seen and evaluated at the bedside OBJECTIVE: resting comfortably ASSESSMENT AND PLAN: 26 year old woman with Traumatic Brain Injury with severe mental disability admitted for DVT -pt found to have B/L DVT -will discharge on xarelto for full dose anticoagulation -should follow up with heme as an outpatient to cont hypercoagulable workup <Mark Benavides - Last Filed: 05/21/16 18:47> Discharge Summary Reason For Visit: ACUTE THROMBOSIS BASILIC VEINS Current Active Problems Acute thrombosis of basilic vein (Acute) Dvt femoral (deep venous thrombosis) (Acute) Seizures (Chronic) - Home Medications Comprehensive Discharge Medication List: Ambulatory Orders Acetaminophen [Tylenol] 650 mg PO QID PRN 05/19/16 Benztropine Mesylate [Cogentin -] 1 mg PO BID 05/19/16 Cholecalciferol (Vitamin D3) [Vitamin D3] 2,000 unit PO DAILY 05/19/16 Clobazam [Onfi -] 10 mg PO BID 05/19/16 Docusate Sodium [Colace -] 200 mg PO HS 05/19/16 Haloperidol [Haldol -] 2 mg PO DAILY 05/19/16 Haloperidol [Haldol -] 5 mg PO DAILY 05/19/16 Lacosamide [Vimpat -] 200 mg PO DAILY 05/19/16 Levetiracetam [Keppra Oral Solution -] 22.5 ml PO BID 05/19/16 Levonorgestrel 0 mg PO DAILY 05/19/16 Metformin HCl [Glucophage] 1,000 mg PO BID 05/19/16 Polyethylene Glycol 3350 [Miralax 119 gm Btl -] 17 gm PO DAILY 05/19/16 Pyridoxine HCl (B-6) [Vitamin B6 -] 50 mg PO DAILY 05/19/16 Salicylic Acid [Selsun Blue] 325 ml TP BID 05/19/16 Thiamine HCl [B-1] 100 mg PO BID 05/19/16 Topiramate 200 mg PO BID 05/19/16 Vits A and D/White Pet/Lanolin [Desitin Clear Ointment] 99 gm TP BID 05/19/16 Rivaroxaban [Xarelto] 15 mg PO BID #42 tab.ds.pk 05/21/16 Rivaroxaban [Xarelto] 20 mg PO DAILY #30 tab.ds.pk 05/21/16 <Amber Neal - Last Filed: 05/21/16 13:23> - Home Medications Comprehensive Discharge Medication List: Ambulatory Orders Acetaminophen [Tylenol] 650 mg PO QID PRN 05/19/16 Benztropine Mesylate [Cogentin -] 1 mg PO BID 05/19/16 Cholecalciferol (Vitamin D3) [Vitamin D3] 2,000 unit PO DAILY 05/19/16 Clobazam [Onfi -] 10 mg PO BID 05/19/16 Docusate Sodium [Colace -] 200 mg PO HS 05/19/16 Haloperidol [Haldol -] 2 mg PO DAILY 05/19/16 Haloperidol [Haldol -] 5 mg PO DAILY 05/19/16 Lacosamide [Vimpat -] 200 mg PO DAILY 05/19/16 Levetiracetam [Keppra Oral Solution -] 22.5 ml PO BID 05/19/16 Levonorgestrel 0 mg PO DAILY 05/19/16 Metformin HCl [Glucophage] 1,000 mg PO BID 05/19/16 Polyethylene Glycol 3350 [Miralax 119 gm Btl -] 17 gm PO DAILY 05/19/16 Pyridoxine HCl (B-6) [Vitamin B6 -] 50 mg PO DAILY 05/19/16 Salicylic Acid [Selsun Blue] 325 ml TP BID 05/19/16 Thiamine HCl [B-1] 100 mg PO BID 05/19/16 Topiramate 200 mg PO BID 05/19/16 Vits A and D/White Pet/Lanolin [Desitin Clear Ointment] 99 gm TP BID 05/19/16 Rivaroxaban [Xarelto] 15 mg PO BID #42 tab.ds.pk 05/21/16 Rivaroxaban [Xarelto] 20 mg PO DAILY #30 tab.ds.pk 05/21/16 <Mark Benavides - Last Filed: 05/21/16 18:47> - Instructions Diet, Activity, Other Instructions: Ms. Peoples, you have been diagnosed with Deep vein thrombosis, also known as blood clots, in both of your legs. You were treated with an anticoagulation medication to prevent further clotting. We are sending you home on a medication that treats and prevents further blood clots from forming. This medication, Xarelto, can cause bleeding, and you are more likely to bruise more easily, and it may take longer for bleeding to stop. Dosing instructions for this medications: Please take xarelto 15mg by mouth twice a day for 21 days. Then take medication 20mg by mouth once a day for the next six months. If you experience any serious bleeding and/or other worsening of symptoms, please return to the emergency room. Please follow up with your primary care physician with in one week. Disposition: HOME Problem List - Problems (1) Acute thrombosis of basilic vein Code(s): I82.619 - ACUTE EMBOLISM AND THROMBOSIS OF SUPERFIC VN UNSP UP EXTREM Qualifiers: Laterality: right Qualified Code(s): I82.611 - Acute embolism and thrombosis of superficial veins of right upper extremity (2) Facial contusion Code(s): S00.83XA - CONTUSION OF OTHER PART OF HEAD, INITIAL ENCOUNTER Qualifiers: Encounter type: initial encounter Qualified Code(s): S00.83XA - Contusion of other part of head, initial encounter (3) Seizures Code(s): R56.9 - UNSPECIFIED CONVULSIONS (4) Dvt femoral (deep venous thrombosis) Code(s): I82.419 - ACUTE EMBOLISM AND THROMBOSIS OF UNSPECIFIED FEMORAL VEIN <Amber Neal - Last Filed: 05/21/16 13:23> This patient is new to me today: No Emergency Visit: Yes ED Registration Date: 05/19/16 Care time: The patient presented to the Emergency Department on the above date and was hospitalized for further evaluation of their emergent condition. Critical Care patient: No - Discharge Referral Referred to [facility] Med P.C.: No <Amber Neal - Last Filed: 05/21/16 13:23>
[2016-05-21 14:24] VITALS: BP 123/72; PULSE 94; TEMP 98
[2016-05-21] MEDS ORDERED: RIVAROXABAN 15 MG TABLET PO ONE (15:24)
== END 2016-05-21 18:38 | disposition home or self-care (01) | DRG 197 ==
LOC: JER 16:55 → JERBED 23:39 → UNDOADMIN 23:45 → J6S 05-20 02:52
PROVIDERS: ADMIT Internal Medicine; ATTEND Internal Medicine
DX: I82.611 Acute embolism and thrombosis of superficial veins of right upper extremity (principal); F72 Severe intellectual disabilities; R26.89 Other abnormalities of gait and mobility; E28.2 Polycystic ovarian syndrome; G40.802 Other epilepsy, not intractable, without status epilepticus; F41.8 Other specified anxiety disorders; D68.59 Other primary thrombophilia; I82.413 Acute embolism and thrombosis of femoral vein, bilateral; Z86.11 Personal history of tuberculosis; Z87.820 Personal history of traumatic brain injury
CPT/HCPCS: 36415; 70450-TC; 71010-TC; 80053; 80177; 80185; 82803; 84484; 84703; 85025; 85610; 85730; 93970-TC; 93971; 97116-GP; 97162-PG; 99281-25; 99283-25; C9254

== ENCOUNTER 2016-06-04 12:31 | Emergency (ER) | payer OTHER ==
[2016-06-04 12:48] VITALS: BMI 28.3
[2016-06-04 12:54] VITALS: TEMP 97.7
--- NOTE | 2016-06-04 15:00 | PDOC ---
History of Present Illness - General Chief Complaint: Edema Stated Complaint: SWOLLEN ARM Time Seen by Provider: 06/04/16 13:20 History Source: Patient Exam Limitations: No Limitations - History of Present Illness Initial Comments: 06/04/16 13:58 26-year-old female with history of MRDD and frequent self-inflicted injuries presents with swelling to her right forearm noted this morning by one of the workers. As per staff patient frequently falls to the ground and hits objects around. Staff denies specific episode involving the affected area. Patient unable to communicate needs and has no previous injury to the affected area. Timing/Duration: unsure Severity: mild Associated Symptoms: reports: denies symptoms Past History - Past Medical History Allergies/Adverse Reactions: Allergies Allergy/AdvReac Type Severity Reaction Status Date / Time strawberry Allergy Hives Verified 06/04/16 12:44 Home Medications: Ambulatory Orders Acetaminophen [Tylenol] 650 mg PO QID PRN 05/19/16 Benztropine Mesylate [Cogentin -] 1 mg PO BID 05/19/16 Cholecalciferol (Vitamin D3) [Vitamin D3] 2,000 unit PO DAILY 05/19/16 Clobazam [Onfi -] 10 mg PO BID 05/19/16 Docusate Sodium [Colace -] 200 mg PO HS 05/19/16 Haloperidol [Haldol -] 2 mg PO DAILY 05/19/16 Haloperidol [Haldol -] 5 mg PO DAILY 05/19/16 Lacosamide [Vimpat -] 200 mg PO DAILY 05/19/16 Levetiracetam [Keppra Oral Solution -] 22.5 ml PO BID 05/19/16 Levonorgestrel 0 mg PO DAILY 05/19/16 Metformin HCl [Glucophage] 1,000 mg PO BID 05/19/16 Polyethylene Glycol 3350 [Miralax 119 gm Btl -] 17 gm PO DAILY 05/19/16 Pyridoxine HCl (B-6) [Vitamin B6 -] 50 mg PO DAILY 05/19/16 Salicylic Acid [Selsun Blue] 325 ml TP BID 05/19/16 Thiamine HCl [B-1] 100 mg PO BID 05/19/16 Topiramate 200 mg PO BID 05/19/16 Vits A and D/White Pet/Lanolin [Desitin Clear Ointment] 99 gm TP BID 05/19/16 Rivaroxaban [Xarelto] 15 mg PO BID #42 tab.ds.pk 05/21/16 Rivaroxaban [Xarelto] 20 mg PO DAILY #30 tab.ds.pk 05/21/16 Seizures: Yes Other medical history: AUTISM, TBI, INTELLECTUAL DISABILITY - Surgical History Abdominal Surgery: Yes - Psycho/Social/Smoking Cessation Hx Anxiety: No Suicidal Ideation: No Smoking History: Never smoked Have you smoked in the past 12 months: No Hx Alcohol Use: No Drug/Substance Use Hx: No Substance Use Type: None Patient Lives Alone: No Lives with/in: assisted living Review of Systems - Review of Systems Able to Perform ROS?: Yes Constitutional: No: Symptoms Reported Respiratory: No: Symptoms reported Musculoskeletal: No: Muscle Weakness Integumentary: Yes: Lumps (right forearm) Neurological: No: Symptoms reported Endocrine: No: Symptoms Reported *Physical Exam - Vital Signs Last Vital Signs Temp Pulse Resp BP Pulse Ox 97.7 F 98 H 14 112/82 99 06/04/16 12:44 06/04/16 12:44 06/04/16 12:44 06/04/16 12:44 06/04/16 12:44 - Physical Exam General Appearance: Yes: Nourished, Appropriately Dressed. No: Apparent Distress Comments:: 06/04/16 15:01 2+ right radial Extremity: positive: Normal Capillary Refill, Normal Range of Motion. negative : Normal Inspection (small palpable hematoma over the distal aspect right radius ), Tender Integumentary: positive: Normal Color, Warm, Moist. negative: Ecchymosis Neurologic: positive: Motor Strength 5/5 (right hand grasp) ED Treatment Course - RADIOLOGY Radiology Studies Ordered: Category Date Time Status FOREARM- RIGHT [RAD] Stat Radiology 06/04/16 14:28 Completed Medical Decision Making - Medical Decision Making 06/04/16 14:02 Patient with bump to right forearm concerning for fracture as per staff. On my exam patient had no palpable crepitus or bony deformity but did have a noted small hematoma over the distal aspect of right radius dorsally. Patient ordered for x-ray to rule out fracture 06/04/16 15:03 X-ray negative for acute findings. Discharged home with supportive care and staff. *DC/Admit/Observation/Transfer Diagnosis at time of Disposition: Contusion of right forearm Qualifiers: Encounter type: initial encounter Qualified Code(s): S50.11XA - Contusion of right forearm, initial encounter - Discharge Dispostion Disposition: HOME Condition at time of disposition: Good - Patient Instructions Printed Discharge Instructions: DI for Contusion Additional Instructions: May give Motrin or Tylenol for discomfort and apply ice to the affected area. Follow-up with patient's PCP as needed.
[2016-06-04 16:28] VITALS: BP 117/74; PULSE 88
== END 2016-06-04 16:29 | disposition home or self-care (01) ==
LOC: JER 12:31
DX: S50.11XA Contusion of right forearm, initial encounter (principal); F78 Other intellectual disabilities; F84.0 Autistic disorder; Z87.820 Personal history of traumatic brain injury; Z91.81 History of falling; X58.XXXA Exposure to other specified factors, initial encounter; Y93.89 Activity, other specified; Y92.118 Other place in children's home and orphanage as the place of occurrence of the external cause
CPT/HCPCS: 73090-TC-RT; 99282-25

== ENCOUNTER 2016-07-05 23:48 | Emergency (ER) | payer OTHER ==
[2016-07-06 00:16] VITALS: BP 122/67; PULSE 82; TEMP 97.1; BMI 21.9
--- NOTE | 2016-07-06 00:36 | PDOC ---
History of Present Illness - General History Source: Care Provider Exam Limitations: No Limitations - History of Present Illness Initial Comments: 07/06/16 01:02 The patient is a 26 year old female with a significant past medical history of MRDD, sent from a [facility] to [facility] Emergency Department with laceration to the back of the head. The patients aid reports that the patient frequently stiffens her body and falls to the ground if she does not want to leave bed. She reports that earlier today the patient fell to the side of her bed, but did not lose consciousness. The patient aid admits to seeing blood at the back of her head which brought them to the ED. The patient is unable to communicate dude to [facility], but does not seem to be in any pain. <Torri Cisse - Last Filed: 07/06/16 01:01> <Keesha Robbins - Last Filed: 07/07/16 05:27> - General Chief Complaint: Injury Stated Complaint: INJURY-FALL Time Seen by Provider: 07/06/16 00:02 Past History <Torri Cisse - Last Filed: 07/06/16 01:01> - Past Medical History Seizures: Yes - Surgical History Abdominal Surgery: Yes - Psycho/Social/Smoking Cessation Hx Anxiety: No Suicidal Ideation: No Smoking History: Never smoked Have you smoked in the past 12 months: No Information on smoking cessation initiated: No Hx Alcohol Use: No Drug/Substance Use Hx: No Substance Use Type: None <Keesha Robbins - Last Filed: 07/07/16 05:27> - Past Medical History Allergies/Adverse Reactions: Allergies Allergy/AdvReac Type Severity Reaction Status Date / Time strawberry Allergy Hives Verified 07/06/16 00:16 Home Medications: Ambulatory Orders Acetaminophen [Tylenol] 650 mg PO QID PRN 05/19/16 Benztropine Mesylate [Cogentin -] 1 mg PO BID 05/19/16 Cholecalciferol (Vitamin D3) [Vitamin D3] 2,000 unit PO DAILY 05/19/16 Clobazam [Onfi -] 10 mg PO BID 05/19/16 Docusate Sodium [Colace -] 200 mg PO HS 05/19/16 Haloperidol [Haldol -] 2 mg PO DAILY 05/19/16 Haloperidol [Haldol -] 5 mg PO DAILY 05/19/16 Lacosamide [Vimpat -] 200 mg PO DAILY 05/19/16 Levetiracetam [Keppra Oral Solution -] 22.5 ml PO BID 05/19/16 Levonorgestrel 0 mg PO DAILY 05/19/16 Metformin HCl [Glucophage] 1,000 mg PO BID 05/19/16 Polyethylene Glycol 3350 [Miralax 119 gm Btl -] 17 gm PO DAILY 05/19/16 Pyridoxine HCl (B-6) [Vitamin B6 -] 50 mg PO DAILY 05/19/16 Salicylic Acid [Selsun Blue] 325 ml TP BID 05/19/16 Thiamine HCl [B-1] 100 mg PO BID 05/19/16 Topiramate 200 mg PO BID 05/19/16 Vits A and D/White Pet/Lanolin [Desitin Clear Ointment] 99 gm TP BID 05/19/16 Rivaroxaban [Xarelto] 15 mg PO BID #42 tab.ds.pk 05/21/16 Rivaroxaban [Xarelto] 20 mg PO DAILY #30 tab.ds.pk 05/21/16 Bacitracin - [Bacitracin Topical Ointment -] 1 applic TP BID #10 g 07/06/16 Review of Systems - Review of Systems Able to Perform ROS?: No (MRDD) <Torri Cisse - Last Filed: 07/06/16 01:01> *Physical Exam - Vital Signs Last Vital Signs Temp Pulse Resp BP Pulse Ox 97.1 F L 82 18 122/67 97 07/06/16 00:14 07/06/16 00:14 07/06/16 00:14 07/06/16 00:14 07/06/16 00:14 - Physical Exam Comments: 07/06/16 01:02 GENERAL: Awake, alert, and fully oriented, in no acute distress HEAD: 1.5 inch laceration to left occiput, 6 mir placed EYES: PERRLA, EOMI, sclera anicteric, conjunctiva clear ENT: Auricles normal inspection, hearing grossly normal, nares patent, oropharynx clear without exudates. Moist mucosa NECK: Normal ROM, supple, no lymphadenopathy, JVD, or masses LUNGS: Breath sounds equal, clear to auscultation bilaterally. No wheezes, and no crackles HEART: Regular rate and rhythm, normal S1 and S2, no murmurs, rubs or gallops ABDOMEN: Soft, nontender, normoactive bowel sounds. No guarding, no rebound. No masses EXTREMITIES: Normal range of motion, no edema. No clubbing or cyanosis. No cords, erythema, or tenderness NEUROLOGICAL: Cranial nerves II through XII grossly intact. Normal speech, normal gait SKIN: Warm, Dry, normal turgor, no rashes or lesions noted. <Torri Cisse - Last Filed: 07/06/16 01:01> - Vital Signs Last Vital Signs Temp Pulse Resp BP Pulse Ox 97.1 F L 82 18 122/67 97 07/06/16 00:14 07/06/16 00:14 07/06/16 00:14 07/06/16 00:14 07/06/16 00:14 <Keesha Robbins - Last Filed: 07/07/16 05:27> Procedures - Laceration/Wound Repair Head Wound Length: to 2.5 cm Wound Explored: clean Wound's Depth, Shape: superficial Irrigated w/ Saline: No Betadine Prep: No Wound Repaired With: [place] (6 mir) <Keesha Robbins - Last Filed: 07/07/16 05:27> ED Treatment Course - Medications Given in the ED: ED Medications Discontinued Medications Generic Name Dose Route Start Last Admin Trade Name Freq PRN Reason Stop Dose Admin Diphtheria/Tetanus/Acell Pertussis 0.5 ml 07/06/16 00:48 07/06/16 00:58 Adacel Adolescent/Adult - IM 07/06/16 00:49 Not Given .ONCE ONE <Torri Cisse - Last Filed: 07/06/16 01:01> Medical Decision Making - Medical Decision Making 07/07/16 05:06 Pt comes with laceration to the occiput: 1.5 inches. She had no LOC; witnessed by her aide at the [facility]. Mir placed. Pt tolerated it well. Dressed with bacitracin ointment. <Keesha Robbins - Last Filed: 07/07/16 05:27> *DC/Admit/Observation/Transfer - Attestations Scribe Attestion: 07/06/16 01:04 Documentation prepared by Torri Cisse, acting as medical transcriber for Keesha Robbins MD. <Torri Cisse - Last Filed: 07/06/16 01:01> <Keesha Robbins - Last Filed: 07/07/16 05:27> Diagnosis at time of Disposition: Scalp laceration - Discharge Dispostion Disposition: HOME Condition at time of disposition: Fair - Prescriptions Prescriptions: Bacitracin - [Bacitracin Topical Ointment -] 1 applic TP BID #10 g - Referrals Referrals: STAFF,NOT ON [Primary Care Provider] - - Patient Instructions Printed Discharge Instructions: DI for Closed Head Injury, DI for Laceration Repair of the Scalp, DI for Laceration Repair -- Mir Additional Instructions: MIR CAN BE REMOVED IN 10 DAYS...
[2016-07-06] MEDS ORDERED: DIPHTH,PERTUSS(ACELL),TET VAC 0.5 ML VIAL IM ONE (00:48)
== END 2016-07-06 01:16 | disposition home or self-care (01) ==
LOC: SUPCPDRO 23:48 → JER 23:48
PROC: 0HQ0XZZ Repair Scalp Skin, External Approach (ICD-10-PCS; principal; 2016-07-05)
DX: S01.01XA Laceration without foreign body of scalp, initial encounter (principal); W06.XXXA Fall from bed, initial encounter; Y93.89 Activity, other specified; Y92.193 Bedroom in other specified residential institution as the place of occurrence of the external cause
CPT/HCPCS: 12001-25; 99282-25

== ENCOUNTER 2016-07-24 08:47 | Emergency (ER) | payer OTHER ==
[2016-07-24 08:53] VITALS: TEMP 97.9; BMI 21.0
--- NOTE | 2016-07-24 09:21 | PDOC ---
History of Present Illness - General Chief Complaint: Seizure Stated Complaint: seizure Time Seen by Provider: 07/24/16 09:05 History Source: Care Provider Exam Limitations: Clinical Condition - History of Present Illness Initial Comments: 07/24/16 09:16 26 year old female with a past medical history seizures, NIDDM, traumatic brain injury, autism, gait disorder,presents with one week history of increased seizure activity. service parts driver state that for past week she has had increased seizure activity occurring every other day and lasting for approx. 10 sec. However today seizure have increased in frequency. She had 5 less than 30 min apart which prompted trip to ED. She has been taking antiepileptic meds as directed. Seizure consist of arm stiffening and eyes rolling in back of head with loss of bladder function lasting approx. 10sec. Denies CP, AZAR, SOB, abd. pain, N/V. Timing/Duration: getting worse Severity: moderate Associated Symptoms: reports: denies symptoms Past History - Past Medical History Allergies/Adverse Reactions: Allergies Allergy/AdvReac Type Severity Reaction Status Date / Time No Known Drug Allergies Allergy Verified 07/24/16 09:09 strawberry Allergy Hives Verified 07/24/16 08:53 Home Medications: Ambulatory Orders Benztropine Mesylate 1 tab BID 07/24/16 Cholecalciferol (Vitamin D3) [Vitamin D3] 1 tab PO DAILY 07/24/16 Clobazam [Onfi -] 10 mg PO BID 07/24/16 Docusate Sodium [Colace -] 2 cap PO HS 07/24/16 Glycopyrrolate [Robinul Forte -] 2 mg PO BID 07/24/16 Haloperidol 10 mg PO HS 07/24/16 Lacosamide [Vimpat -] 200 mg PO BID 07/24/16 Levetiracetam [Keppra Oral Solution -] 1,000 mg PO BID 07/24/16 Metformin HCl 500 mg PO BID 07/24/16 Phenobarbital - 32.4 mg PO BID 07/24/16 Phenytoin Oral Suspension [Dilantin Oral Suspension 100 MG/4 ML] 125 mg PO QSHIFT 07/24/16 Polyethylene Glycol 3350 [Miralax 255 gm Btl -] 527 gm PO WEEKLY 07/24/16 Pyridoxine HCl (B-6) [Vitamin B6 -] 1 tab DAILY 07/24/16 Thiamine HCl [B-1] 100 mg PO BID 07/24/16 Topiramate [Topamax -] 200 mg PO BID 07/24/16 Seizures: Yes Other medical history: Mental retardation - Surgical History Abdominal Surgery: Yes - Psycho/Social/Smoking Cessation Hx Anxiety: No Suicidal Ideation: No Smoking History: Never smoked Have you smoked in the past 12 months: No Information on smoking cessation initiated: No Hx Alcohol Use: No Drug/Substance Use Hx: No Substance Use Type: None *Physical Exam - Vital Signs Last Vital Signs Temp Pulse Resp BP Pulse Ox 97.9 F 91 H 18 127/80 99 07/24/16 08:51 07/24/16 08:51 07/24/16 08:51 07/24/16 08:51 07/24/16 08:51 - Physical Exam General Appearance: Yes: Mild Distress HEENT: positive: EOMI, ANTONIO Neck: positive: Supple Respiratory/Chest: positive: Lungs Clear, Normal Breath Sounds. negative: Respiratory Distress, Accessory Muscle Use Cardiovascular: positive: Regular Rhythm, Regular Rate, S1, S2. negative: Edema , JVD, Murmur Gastrointestinal/Abdominal: positive: Normal Bowel Sounds, Soft. negative: Tender Neurologic: positive: Responsive, Other (mental retardation) ED Treatment Course - LABORATORY CBC & Chemistry Diagram: 07/24/16 09:40 07/24/16 09:40 Medical Decision Making - Medical Decision Making 07/24/16 11:08 26 year old female with a past medical history seizures, NIDDM, traumatic brain injury, autism, gait disorder,presents with one week history of increased seizure activity. Will order stat labs to r/o infection. CBC, CMP, UA, and CXR pending. 07/24/16 11:39 * Labs and imaging have r/o infection and metabolic causes of increased seizure activity. * Ordered Keppra level. * Will contact come that if keppra level low dose may need to be adjusted and regardless needs to see neurologist for possible increase in dosing. *DC/Admit/Observation/Transfer Diagnosis at time of Disposition: Increasing frequency of seizure activity - Discharge Dispostion Disposition: RETIREMENT FACILITY Condition at time of disposition: Stable Admit: No - Patient Instructions Printed Discharge Instructions: DI for Seizure Disorder -- Adult Additional Instructions: Follow up with Neurologist. Appointment made for 07/24/2016. Keppra levels pending. regular diet, increase activity as tolerated. If seizure increase in intensity and duration please return to ED.
[2016-07-24 09:55] LABS: BASOPHIL 1.4 % (0-2.0); EOSINOPHIL 4.1 % (0-4.5); MCH 32.6 pg (25.7-33.7); MCHC 33.7 g/dl (32.0-36.0); MEAN PLT VOLUME 8.3 fl (7.5-11.1); PLATELET COUNT 215 K/MM3 (134-434); WHITE BLOOD COUNT 4.9 K/mm3 (4.0-10.0)
[2016-07-24 10:14] LABS: ANION GAP 10 (8-16); BILIRUBIN,TOTAL 0.3 mg/dL (0.2-1.0); CALCIUM 8.2 mg/dL (8.5-10.1); CO2 25 mmol/L (21-32); COCKROFT - GAULT 114.9455; CREATININE 0.6 mg/dL (0.55-1.02); GLUCOSE,RANDOM 84 mg/dL (74-106); SGPT/ALT 28 U/L (12-78); TOT PROT 7.5 g/dl (6.4-8.2)
[2016-07-24 10:15] LABS: ALK PHOS 106 U/L (45-117)
[2016-07-24 10:25] LABS: SGOT/AST 43 U/L (15-37)
--- NOTE | 2016-07-24 11:09 | PDOC ---
Attending Attestation - Resident Resident Name: Jose Addison - ED Attending Attestation I have performed the following: I have examined & evaluated the patient, The case was reviewed & discussed with the resident, I agree w/resident's findings & plan, Exceptions are as noted - HPI HPI: 07/24/16 11:07 26-year-old female with multiple medical problems including underlying seizure disorder [facility] from [facility] with increasing frequency of seizures over the last week, and 5 seizures today. No objective evidence of infection per aides, limited history from patient. - Physicial Exam PE: 07/24/16 11:08 agree with exam no active seizure activity - Medical Decision Making 07/24/16 11:08 Patient seen and evaluated with the resident. I agree with the overall evaluation, assessment, and management with the following summary of visit: 26y/o F with increasing frequency of seizure despite compliance with meds. R/O metabolic or infectious etiology. labs, ua cxr reassess
[2016-07-24 11:25] LABS: URINE APPEARANCE CLEAR; URINE BILIRUBIN NEGATIVE (NEGATIVE); URINE COLOR LTYELLOW; URINE GLUCOSE (UA) NEGATIVE (NEGATIVE); URINE KETONE NEGATIVE (NEGATIVE); URINE LEUK ESTERASE NEGATIVE (NEGATIVE); URINE NITRITE NEGATIVE (NEGATIVE); URINE PROTEIN NEGATIVE (NEGATIVE); URINE UROBILINOGEN NEGATIVE E.U./dl (0.2-1.0)
[2016-07-24 11:26] LABS: URINE BLOOD 1+ (NEGATIVE)
[2016-07-24 11:40] LABS: URINE MUCUS RARE; URINE RBC 1 /hpf (0-3); URINE WBC 1 /hpf (3-5)
[2016-07-24 13:08] VITALS: BP 122/70; PULSE 78
== END 2016-07-24 13:10 | disposition home or self-care (01) ==
LOC: JER 08:47
DX: G40.909 Epilepsy, unspecified, not intractable, without status epilepticus (principal); F79 Unspecified intellectual disabilities; F84.0 Autistic disorder; E11.9 Type 2 diabetes mellitus without complications; Z79.84 Long term (current) use of oral hypoglycemic drugs; Z87.820 Personal history of traumatic brain injury
CPT/HCPCS: 36415; 71010-TC; 80053; 81003; 81015; 85025; 99283-25

== ENCOUNTER 2016-09-09 09:32 | Emergency (ER) | payer OTHER ==
[2016-09-09 09:44] VITALS: TEMP 98.1; BMI 23.8
--- NOTE | 2016-09-09 09:55 | PDOC ---
History of Present Illness - General History Source: Patient Exam Limitations: No Limitations - History of Present Illness Initial Comments: 09/09/16 10:40 The patient is a 26 year old female with a significant past medical history of blood clots (on coumadin), seizures, NIDDM, traumatic brain injury, autism, MRDD , and gait disorder, who presents to the ED accompanied with social science analyst s/p fall. The social science analyst reports the patient had to come in because she is currently on coumadin. The social science analyst reports that the patient tripped and hit her face on a gate while walking. She states her lip was cut on the gate. She denies any head trauma, back pain, neck pain. She denies fever, chills, nausea, vomiting, diarrhea. ROS is limited because the patient has MRDD. <Gurdeep Velasco - Last Filed: 09/09/16 11:15> <Malena Fischer - Last Filed: 09/09/16 14:03> - General Chief Complaint: Injury Stated Complaint: INJURY Time Seen by Provider: 09/09/16 09:55 Past History <Gurdeep Velasco - Last Filed: 09/09/16 11:15> - Past Medical History Seizures: Yes Other medical history: gait d/o , polycystic ovary syndrome,TBI,AUTISTIC,M.R - Surgical History Abdominal Surgery: Yes - Psycho/Social/Smoking Cessation Hx Anxiety: No Suicidal Ideation: No Smoking History: Never smoked Have you smoked in the past 12 months: No Information on smoking cessation initiated: No Hx Alcohol Use: No Drug/Substance Use Hx: No Substance Use Type: None <Malena Fischer - Last Filed: 09/09/16 14:03> - Past Medical History Allergies/Adverse Reactions: Allergies Allergy/AdvReac Type Severity Reaction Status Date / Time No Known Drug Allergies Allergy Verified 09/09/16 09:37 strawberry Allergy Hives Verified 09/09/16 09:37 Home Medications: Ambulatory Orders Benztropine Mesylate 1 tab BID 07/24/16 Cholecalciferol (Vitamin D3) [Vitamin D3] 1 tab PO DAILY 07/24/16 Clobazam [Onfi -] 10 mg PO BID 07/24/16 Docusate Sodium [Colace -] 2 cap PO HS 07/24/16 Glycopyrrolate [Robinul Forte -] 2 mg PO BID 07/24/16 Haloperidol 10 mg PO HS 07/24/16 Lacosamide [Vimpat -] 200 mg PO BID 07/24/16 Levetiracetam [Keppra Oral Solution -] 1,000 mg PO BID 07/24/16 Metformin HCl 500 mg PO BID 07/24/16 Phenobarbital - 32.4 mg PO BID 07/24/16 Phenytoin Oral Suspension [Dilantin Oral Suspension 100 MG/4 ML] 125 mg PO QSHIFT 07/24/16 Polyethylene Glycol 3350 [Miralax 255 gm Btl -] 527 gm PO WEEKLY 07/24/16 Pyridoxine HCl (B-6) [Vitamin B6 -] 1 tab DAILY 07/24/16 Thiamine HCl [B-1] 100 mg PO BID 07/24/16 Topiramate [Topamax -] 200 mg PO BID 07/24/16 Review of Systems - Review of Systems Able to Perform ROS?: Yes Comments:: 09/09/16 10:40 ROS is limited because patient is MRDD. <Gurdeep Velasco - Last Filed: 09/09/16 11:15> *Physical Exam - Vital Signs Last Vital Signs Temp Pulse Resp BP Pulse Ox 98.1 F 100 H 18 120/38 95 09/09/16 09:37 09/09/16 09:37 09/09/16 09:37 09/09/16 09:37 09/09/16 09:37 - Physical Exam Comments: 09/09/16 10:41 GENERAL: The patient is awake, alert, Nonverbal - in no acute distress, actively looking around HEAD: Normocephalic, nontender. Small abrasion to the coastal surface of lower lip. EYES: extraocular movements intact, sclera anicteric, conjunctiva clear. ENT: baseline voice, Moist mucous membranes. NECK: Normal range of motion, BACK: No focal cervical, thoracic and lumbar tenderness LUNGS: Breath sounds equal, clear to auscultation bilaterally. No wheezes, no crackles, no rales. HEART: Regular rate and rhythm, normal S1 and S2 without murmur, rub or gallop. ABDOMEN: Soft, nontender, normoactive bowel sounds. No guarding, no rebound. No masses. EXTREMITIES: Normal range of motion, no edema. NEUROLOGICAL: No facial assymetry, moving all 4 extremities spontanesously SKIN: Warm, Dry, normal turgor, no rashes or lesions noted. <Gurdeep Vleasco - Last Filed: 09/09/16 11:15> - Vital Signs Last Vital Signs Temp Pulse Resp BP Pulse Ox 98.1 F 100 H 18 120/38 95 09/09/16 09:37 09/09/16 09:37 09/09/16 09:37 09/09/16 09:37 09/09/16 09:37 <Malena Fischer - Last Filed: 09/09/16 14:03> ED Treatment Course - LABORATORY CBC & Chemistry Diagram: 09/09/16 10:54 09/09/16 10:54 <Gurdeep Velasco - Last Filed: 09/09/16 11:15> - LABORATORY CBC & Chemistry Diagram: 09/09/16 10:54 09/09/16 10:54 <Malena Fischer - Last Filed: 09/09/16 14:03> Medical Decision Making - Medical Decision Making 09/09/16 13:06 Pt presents to the ED after fall from standing. History of profound intellectual disability, patient is unchanged from her baseline. History of blood clots on coumadin. INR is 3.9. Will check CT head to rule out intracranial bleed, discharge back to senior living if CT is negative. <Malena Fischer - Last Filed: 09/09/16 14:03> *DC/Admit/Observation/Transfer - Attestations Scribe Attestion: 09/09/16 10:42 Documentation prepared by Gurdeep Velasco, acting as medical illustrator for Malena Fischer MD, MD. <Gurdeep Velasco - Last Filed: 09/09/16 11:15> - Discharge Dispostion Admit: No <Malena Fischer - Last Filed: 09/09/16 14:03> Diagnosis at time of Disposition: Facial contusion - Discharge Dispostion Disposition: HOME Condition at time of disposition: Good
[2016-09-09] MEDS ORDERED: MIDAZOLAM HCL 2 MG/2 ML SINGLE DOSE VIAL IM ONE (10:16)
[2016-09-09 11:09] LABS: EOSINOPHIL 1.3 % (0-4.5); MCHC 33.8 g/dl (32.0-36.0); MEAN CELL VOLUME 97.6 fl (80-96); MEAN PLT VOLUME 7.7 fl (7.5-11.1); NEUTROPHILS 58.5 % (42.8-82.8); PLATELET COUNT 234 K/MM3 (134-434); RDW 14.8 % (11.6-15.6); WHITE BLOOD COUNT 7.4 K/mm3 (4.0-10.0)
[2016-09-09 11:24] LABS: INR 3.9 (0.82-1.09); PROTHROMBIN TIME (PATIENT) 44.1 SEC (9.98-11.88)
[2016-09-09 11:31] LABS: ALBUMIN 3.7 g/dl (3.4-5.0); ANION GAP 11 (8-16); CALCIUM 9.1 mg/dL (8.5-10.1); CO2 23 mmol/L (21-32); COCKROFT - GAULT 155.9325; CREATININE 0.5 mg/dL (0.55-1.02); GLUCOSE,RANDOM 63 mg/dL (74-106); SGPT/ALT 27 U/L (12-78)
[2016-09-09 11:33] LABS: ALK PHOS 82 U/L (45-117); BILIRUBIN,TOTAL 0.2 mg/dL (0.2-1.0); TOT PROT 6.8 g/dl (6.4-8.2)
[2016-09-09 11:46] LABS: SGOT/AST 26 U/L (15-37)
[2016-09-09 16:27] VITALS: BP 140/56; PULSE 92
== END 2016-09-09 16:27 | disposition home or self-care (01) ==
LOC: JER 09:32
DX: S00.83XA Contusion of other part of head, initial encounter (principal); W01.198A Fall on same level from slipping, tripping and stumbling with subsequent striking against other object, initial encounter; Y93.89 Activity, other specified; Y92.29 Other specified public building as the place of occurrence of the external cause; E11.9 Type 2 diabetes mellitus without complications; Z79.84 Long term (current) use of oral hypoglycemic drugs; F73 Profound intellectual disabilities; F84.0 Autistic disorder; R26.89 Other abnormalities of gait and mobility; G40.909 Epilepsy, unspecified, not intractable, without status epilepticus; Z87.820 Personal history of traumatic brain injury; Z79.01 Long term (current) use of anticoagulants
CPT/HCPCS: 36415; 70450-TC; 80053; 84703; 85025; 85610; 85730; 99283-25

== ENCOUNTER 2016-10-31 11:17 | Emergency (ER) | payer OTHER ==
[2016-10-31 11:42] VITALS: BP 110/73; PULSE 85; TEMP 97.4; BMI 19.2
--- NOTE | 2016-10-31 12:08 | PDOC ---
History of Present Illness - General Chief Complaint: Decubitus Ulcer Stated Complaint: BED SORE Time Seen by Provider: 10/31/16 12:06 - History of Present Illness Initial Comments: The patient is a 26 year old female with a significant past medical history of blood clots (on Coumadin), seizures, NIDDM, traumatic brain injury, autism, MRDD , and gait disorder, who presents to the ED accompanied by two representatives from her custodial after a lesion on her sacrum was discovered last night. The facility reports that the nurses were changing her diaper yesterday evening and noticed a lesion on her sacrum that was not draining or bleeding. They deny fevers chills, nausea, vomiting, diarrhea, cough, or other symptoms. She is non- verbal and responds to touch and voice at baseline but does not follow commands. She can occasionally walk but has been more bed bound recently. Of note, she has recently had 60lbs of weight loss since she switched to a pureed diet after loss of dentition. 10/31/16 12:10 Past History - Past Medical History Allergies/Adverse Reactions: Allergies Allergy/AdvReac Type Severity Reaction Status Date / Time No Known Drug Allergies Allergy Verified 10/31/16 11:35 strawberry Allergy Hives Verified 10/31/16 11:35 Home Medications: Ambulatory Orders Benztropine Mesylate 1 tab BID 07/24/16 Cholecalciferol (Vitamin D3) [Vitamin D3] 1 tab PO DAILY 07/24/16 Clobazam [Onfi -] 10 mg PO BID 07/24/16 Docusate Sodium [Colace -] 2 cap PO HS 07/24/16 Glycopyrrolate [Robinul Forte -] 2 mg PO BID 07/24/16 Haloperidol 10 mg PO HS 07/24/16 Lacosamide [Vimpat -] 200 mg PO BID 07/24/16 Levetiracetam [Keppra Oral Solution -] 1,000 mg PO BID 07/24/16 Metformin HCl 500 mg PO BID 07/24/16 Phenobarbital - 32.4 mg PO BID 07/24/16 Phenytoin Oral Suspension [Dilantin Oral Suspension 100 MG/4 ML] 125 mg PO QSHIFT 07/24/16 Polyethylene Glycol 3350 [Miralax 255 gm Btl -] 527 gm PO WEEKLY 07/24/16 Pyridoxine HCl (B-6) [Vitamin B6 -] 1 tab DAILY 07/24/16 Thiamine HCl [B-1] 100 mg PO BID 07/24/16 Topiramate [Topamax -] 200 mg PO BID 07/24/16 Seizures: Yes Other medical history: POC, TBI,AUTISM - Surgical History Abdominal Surgery: Yes - Psycho/Social/Smoking Cessation Hx Anxiety: No Suicidal Ideation: No Smoking History: Never smoked Have you smoked in the past 12 months: No Hx Alcohol Use: No Drug/Substance Use Hx: No Substance Use Type: None Review of Systems - Review of Systems Able to Perform ROS?: No (Developmental delay) Is the patient limited Bol[place]ian proficient: Yes *Physical Exam - Vital Signs Last Vital Signs Temp Pulse Resp BP Pulse Ox 97.4 F L 85 19 110/73 97 10/31/16 11:35 10/31/16 11:35 10/31/16 11:35 10/31/16 11:35 10/31/16 11:35 - Physical Exam Comments: 10/31/16 16:09 Limited becasue she does not follow commands. General Appearance: Yes: Nourished, Other (Responsive to voice and touch but does not follow commands. Overall contracted.). No: Apparent Distress HEENT: positive: EOMI, ANTONIO. negative: Normal ENT Inspection (Normal oropharynx but missing teeth) Neck: positive: Trachea midline, Normal Thyroid, Supple. negative: Tender, Rigid Respiratory/Chest: positive: Lungs Clear, Normal Breath Sounds. negative: Chest Tender, Respiratory Distress, Accessory Muscle Use Cardiovascular: positive: Regular Rhythm, Regular Rate. negative: S1, S2, Edema , Murmur Gastrointestinal/Abdominal: positive: Normal Bowel Sounds, Flat, Soft. negative : Tender, Organomegaly, Pulsatile Mass Musculoskeletal: positive: Muscle Spasm (Sppears to be overlal contracted but moving ocassionally.) Extremity: positive: Normal Capillary Refill. negative: Normal Range of Motion (Unable to ascertain range of motion.), Tender Integumentary: positive: Other (7 cm x 3 cm oblong slightlyly eruthematous lesion on her sacrum with central pallor with erythema on the margins.) Neurologic: positive: Alert (alert ot voice and touch but slightly somnolent.) Medical Decision Making - Medical Decision Making 26 year old female who is severely cognitively impaired presenting with lesion on sacrum concerning for stage 1 Decub vs. abrasion. Lumbo-Sacral X Ray negative for bony pathology or subcutaneous air. Patient can go back to her facility given she is afebrile with superficial skin lesion. Will give wound care instructions with turning instructions as well and follow up with PCP in a week. 10/31/16 16:09 10/31/16 16:12 *DC/Admit/Observation/Transfer Diagnosis at time of Disposition: Abrasion - Discharge Dispostion Disposition: HOME Condition at time of disposition: Improved Admit: No - Patient Instructions Printed Discharge Instructions: How to Prevent Pressure Ulcers Additional Instructions: You were seen for a sacral wound, we did and xray and it did not show any sign of bone infection or deep soft tissue infection. You should change the dressing once a day and apply Bacitracin with plenty of gauze. You should also make sure that she is either on a chair with a pillow over that area or on her side in bed. If she prefers to lay flat, tuck a pillow under one side of her buttocks to relieve pressure on that area. Please return if your wound gets worse or you notice fevers, chills, nausea, vomiting, diarrhea or other sick symptoms. Please follow up with your PCP within a week. Print Language: AZERI - Attestations Physician Attestion: 10/31/16 16:22 I, Dr. Keon Zaidi, attest that this document has been prepared under my direction and personally reviewed by me in its entirety. I further attest, that it accurately reflects all work, treatment, procedures and medical decision -making performed by me.
--- NOTE | 2016-10-31 13:02 | PDOC ---
Attending Attestation - Resident Resident Name: Keon Zaidi - ED Attending Attestation I have performed the following: I have examined & evaluated the patient, The case was reviewed & discussed with the resident, I agree w/resident's findings & plan, Exceptions are as noted - HPI HPI: 10/31/16 13:00 Agree with the resident's HPI as documented in the electronic medical record. - Physicial Exam PE: 10/31/16 13:00 Agree with the resident's physical examination as documented in the electronic medical record. - Medical Decision Making 10/31/16 13:00 26-year-old female with history of traumatic brain injury, autism, diabetes who presents the emergency department with a wound to her sacral region; the patient has history of multiple falls secondary to unsteady gait. Differential diagnosis includes but is not limited to: Abrasion, contusion, stage I decubitus ulcerunlikely due to clinical presentation. Plan: 1. Plain films of lumbar sacral spine 2. Observe and reevaluate
== END 2016-10-31 16:39 | disposition home or self-care (01) ==
LOC: JER 11:17
DX: S30.810A Abrasion of lower back and pelvis, initial encounter (principal); E11.9 Type 2 diabetes mellitus without complications; Z79.84 Long term (current) use of oral hypoglycemic drugs; F84.0 Autistic disorder; F78 Other intellectual disabilities; Z86.69 Personal history of other diseases of the nervous system and sense organs; Z87.820 Personal history of traumatic brain injury; Z86.718 Personal history of other venous thrombosis and embolism; Z79.01 Long term (current) use of anticoagulants; R26.9 Unspecified abnormalities of gait and mobility; X58.XXXA Exposure to other specified factors, initial encounter; Y93.89 Activity, other specified; Y92.89 Other specified places as the place of occurrence of the external cause
CPT/HCPCS: 72100-TC; 99281-25

== ENCOUNTER 2016-11-22 18:59 | Inpatient (IN) | payer OTHER ==
[2016-11-22 19:51] VITALS: BMI 23.0
--- NOTE | 2016-11-22 20:22 | PDOC ---
History of Present Illness - General Chief Complaint: Edema Stated Complaint: ALLERGIC REACTION Time Seen by Provider: 11/22/16 20:13 History Source: Care Provider Exam Limitations: Clinical Condition - History of Present Illness Initial Comments: CHIEF COMPLAINT: 26 y/o afebrile female with PMH seizures, mental retardation and history of DVTs BIB care worker from [facility] for bumps on right leg. HISTORY OF PRESENT ILLNESS: Care worker states they noticed 3 red raised bumps on the patient's right lower extremity tonight and brought her here to make sure she does not have a blood clot. She denies that the patient has any other symptoms, including SOB, hemoptysis, red/warm calves. The patient is no longer on coumadin but used to be. Vital signs on arrival are notable for pulse of 97. REVIEW OF SYSTEMS: (unable to obtain from patient) PHYSICAL EXAM: VITAL_SIGNS: within normal limits GENERAL_APPEARANCE: alert, cooperative, no obvious discomfort. MENTAL_STATUS: speech clear, oriented X 3, responds appropriately to questions. NEURO: motor intact and sensory intact in injured extremity. EXTREMITIES: 3 scattered, raised, erythematous papules to right distal LE that are not TTP. No calf erythema, edema, warmth or TTP b/l. SKIN: warm, dry, good color. Past History - Past Medical History Allergies/Adverse Reactions: Allergies Allergy/AdvReac Type Severity Reaction Status Date / Time No Known Drug Allergies Allergy Verified 11/22/16 19:48 strawberry Allergy Hives Verified 11/22/16 19:48 Home Medications: Ambulatory Orders Benztropine Mesylate 1 tab BID 07/24/16 Cholecalciferol (Vitamin D3) [Vitamin D3] 1 tab PO DAILY 07/24/16 Clobazam [Onfi -] 10 mg PO BID 07/24/16 Docusate Sodium [Colace -] 2 cap PO HS 07/24/16 Glycopyrrolate [Robinul Forte -] 2 mg PO BID 07/24/16 Haloperidol 10 mg PO HS 07/24/16 Lacosamide [Vimpat -] 200 mg PO BID 07/24/16 Levetiracetam [Keppra Oral Solution -] 1,000 mg PO BID 07/24/16 Metformin HCl 500 mg PO BID 07/24/16 Phenobarbital - 32.4 mg PO BID 07/24/16 Phenytoin Oral Suspension [Dilantin Oral Suspension 100 MG/4 ML] 125 mg PO QSHIFT 07/24/16 Polyethylene Glycol 3350 [Miralax 255 gm Btl -] 527 gm PO WEEKLY 07/24/16 Pyridoxine HCl (B-6) [Vitamin B6 -] 1 tab DAILY 07/24/16 Thiamine HCl [B-1] 100 mg PO BID 07/24/16 Topiramate [Topamax -] 200 mg PO BID 07/24/16 Rivaroxaban [Xarelto -] 20 mg PO DAILY #30 tablet 11/22/16 Seizures: Yes - Surgical History Abdominal Surgery: Yes - Psycho/Social/Smoking Cessation Hx Anxiety: No Suicidal Ideation: No Smoking History: Never smoked Have you smoked in the past 12 months: No Information on smoking cessation initiated: No Hx Alcohol Use: No Drug/Substance Use Hx: No Substance Use Type: None *Physical Exam - Vital Signs Last Vital Signs Temp Pulse Resp BP Pulse Ox 98.2 F 97 H 20 111/62 99 11/22/16 19:49 11/22/16 19:49 11/22/16 19:49 11/22/16 19:49 11/22/16 19:49 Medical Decision Making - Medical Decision Making A/P: 26 y/o afebrile female here to r/o dvt. Plan is as follows: 1. b/l LE dopplers LE doppler b/l LE IMPRESSION: Bilateral partially occlusive DVT. Partially occlusive thrombus within the common femoral veins bilaterally, as well as mid and distal thirds of the left femoral vein. Partially occlusive thrombus within the right greater saphenous vein. Attempted to call the patient's PCP, Dr. Marina Menjivar in [place]. Awaiting call back. Left message with service. Confirmed with [facility] that patient's PCP is actually Dr. Zamora in . Called that service and the provider rehabilitation program manager, Dr. Milton Denton called back and suggested starting her on Xarelto and discharging her back to the [facility] with rx for xarelto. THe patient's care provider called the facility and confirmed the patient was previously on Pradaxa and Coumadin but both have been discontinued. Spoke with Dr. Lane in the ER and he agrees with plan. Will give first dose of Xarelto in the ER. INformed the care provider we will send RX and she will need to take next dose tomorrow, call Dr. Zamora tomorrow and f/u as soon as possible and return to the ER with any worsening or concerning symptoms. The patient's care provider verbalizes understanding of all instructions, has no further questions and is awaiting discharge. *DC/Admit/Observation/Transfer Diagnosis at time of Disposition: DVT (deep venous thrombosis) Qualifiers: DVT location: lower extremity Affected thrombotic vein of extremity: femoral Chronicity: unspecified Laterality: bilateral Qualified Code(s): I82.413 - Acute embolism and thrombosis of femoral vein, bilateral - Discharge Dispostion Disposition: [facility]ENT[facility] FACILITY Condition at time of disposition: Stable - Prescriptions Prescriptions: Rivaroxaban [Xarelto -] 20 mg PO DAILY #30 tablet - Patient Instructions Printed Discharge Instructions: DI for Deep Vein Thrombosis Additional Instructions: Discharge Instructions: -You have multiple DVTs in your legs -A prescription for an anticoagulation drug has been sent to your pharmacy; please take as prescribed -Follow up with Dr. Zamora as soon as possible -Return to the ER with any worsening or concerning symptoms
--- NOTE | 2016-11-22 23:56 | PDOC ---
*Physical Exam - Vital Signs Last Vital Signs Temp Pulse Resp BP Pulse Ox 98.2 F 97 H 20 111/62 99 11/22/16 19:49 11/22/16 19:49 11/22/16 19:49 11/22/16 19:49 11/22/16 19:49 Medical Decision Making - Medical Decision Making 11/22/16 23:53 I had received a phone call from pt's aunt and HCP Eugenia Lamar [phone]. The patient has had this femoral clot for several months but without improvement of symptoms. The patient and is concerned regarding the facility's ability to care for the patient. States that the patient has been intermittently adherent to her Coumadin and is concerned that the facility may not be providing her medications. States that she has this bilateral common femoral vein not improved. She was given a dose of Xarelto prior to discharge. However, after hearing the case and the patient's aunt's concerns regarding the persistent blood clots and given the large amounts of clots, we'll decide to admit the patient to the hospital for inpatient treatment as well as social work and case management. 11/23/16 00:[address] initially Dr. chatman, who states that this patient does not come to their outpatient office. [facility] Case admitted to med/surg admission. Case discussed in detail with admitting physician including history, physical exam and ancillary studies. Admitting physician has assumed care for the patient, will follow all pending diagnostics and will complete the evaluation and treatment. *DC/Admit/Observation/Transfer Diagnosis at time of Disposition: DVT (deep venous thrombosis) Qualifiers: DVT location: lower extremity Affected thrombotic vein of extremity: femoral Chronicity: unspecified Laterality: bilateral Qualified Code(s): I82.413 - Acute embolism and thrombosis of femoral vein, bilateral - Discharge Dispostion Condition at time of disposition: Stable Admit: Yes - Prescriptions Prescriptions: Rivaroxaban [Xarelto -] 20 mg PO DAILY #30 tablet - Referrals - Patient Instructions Printed Discharge Instructions: DI for Deep Vein Thrombosis Additional Instructions: Discharge Instructions: -You have multiple DVTs in your legs -A prescription for an anticoagulation drug has been sent to your pharmacy; please take as prescribed -Follow up with Dr. Zamora as soon as possible -Return to the ER with any worsening or concerning symptoms - Post Discharge Activity
[2016-11-23 01:01] LABS: BASOPHIL 1.1 % (0-2.0); EOSINOPHIL 1.5 % (0-4.5); MCH 34.2 pg (25.7-33.7); MEAN CELL VOLUME 100.5 fl (80-96); MEAN PLT VOLUME 8.6 fl (7.5-11.1); NEUTROPHILS 55.4 % (42.8-82.8); PLATELET COUNT 228 K/MM3 (134-434); RDW 14.3 % (11.6-15.6); WHITE BLOOD COUNT 7.2 K/mm3 (4.0-10.0)
[2016-11-23 01:15] LABS: INR 1.16 (0.82-1.09); PROTHROMBIN TIME (PATIENT) 12.8 SEC (9.98-11.88)
[2016-11-23 01:18] LABS: ACTIVATED PTT 31.1 SECONDS (26.9-34.4)
--- NOTE | 2016-11-23 01:37 | HP ---
CHIEF COMPLAINT: Bumps to Right Leg PCP: Dr. Zamora HCP: Eugenia Lamar (Aunt) [phone] HISTORY OF PRESENT ILLNESS: This is a 26 y/o female with a past medical history of MR, Seizures, DVTs. Who was brought in to the ED from the [facility] with bumps on the right leg. Patient has MR and is unable to provide HPI. Per ED records: Care worker states they noticed 3 red raised bumps on the patient's right lower extremity tonight and brought her here to make sure she does not have a blood clot. She denies that the patient has any other symptoms, including SOB, hemoptysis, red/ warm calves. The patient is no longer on coumadin, but used to be. ER course was notable for: (1) Doppler B/L lower extremities- Partially occulsive thrombus within the common femoral veins bilaterally, as well as mid and distal thirds of the left femoral vein partially occulusive thrombus within the right greater saphenous vein (2) INR 1.16 (3) Recent Travel: None PAST MEDICAL HISTORY: MR Seizures DVTs PAST SURGICAL HISTORY: Unable to obtain Social History: Smoking: Never Alcohol: None Drugs: None Resides at the skilled nursing Family History: Non-Contributory Allergies No Known Drug Allergies Allergy (Verified 11/22/16 19:48) strawberry Allergy (Verified 11/22/16 19:48) Hives HOME MEDICATIONS: Home Medications Medication Instructions Recorded Benztropine Mesylate 1 tab BID 07/24/16 Cholecalciferol (Vitamin D3) 1 tab PO DAILY 07/24/16 [Vitamin D3] Clobazam [Onfi -] 10 mg PO BID 07/24/16 Docusate Sodium [Colace -] 2 cap PO HS 07/24/16 Glycopyrrolate [Robinul Forte -] 2 mg PO BID 07/24/16 Haloperidol 10 mg PO HS 07/24/16 Lacosamide [Vimpat -] 200 mg PO BID 07/24/16 Levetiracetam [Keppra Oral 1,000 mg PO BID 07/24/16 Solution -] Metformin HCl 500 mg PO BID 07/24/16 Phenobarbital - 32.4 mg PO BID 07/24/16 Phenytoin Oral Suspension 125 mg PO QSHIFT 07/24/16 [Dilantin Oral Suspension 100 MG/4 ML] Polyethylene Glycol 3350 [Miralax 527 gm PO WEEKLY 07/24/16 255 gm Btl -] Pyridoxine HCl (B-6) [Vitamin B6 -] 1 tab DAILY 07/24/16 Thiamine HCl [B-1] 100 mg PO BID 07/24/16 Topiramate [Topamax -] 200 mg PO BID 07/24/16 Rivaroxaban [Xarelto -] 20 mg PO DAILY #30 tablet 11/22/16 REVIEW OF SYSTEMS- Unable to Obtain- Profound MR CONSTITUTIONAL: Absent: fever, chills, diaphoresis, generalized weakness, malaise, loss of appetite, weight change HEENT: Absent: rhinorrhea, nasal congestion, throat pain, throat swelling, difficulty swallowing, mouth swelling, ear pain, eye pain, visual changes CARDIOVASCULAR: Absent: chest pain, syncope, palpitations, irregular heart rate, lightheadedness , peripheral edema RESPIRATORY: Absent: cough, shortness of breath, dyspnea with exertion, orthopnea, wheezing, stridor, hemoptysis GASTROINTESTINAL: Absent: abdominal pain, abdominal distension, nausea, vomiting, diarrhea, constipation, melena, hematochezia GENITOURINARY: Absent: dysuria, frequency, urgency, hesitancy, hematuria, flank pain, genital pain MUSCULOSKELETAL: Absent: myalgia, arthralgia, joint swelling, back pain, neck pain SKIN: Absent: rash, itching, pallor HEMATOLOGIC/IMMUNOLOGIC: Absent: easy bleeding, easy bruising, lymphadenopathy, frequent infections ENDOCRINE: Absent: unexplained weight gain, unexplained weight loss, heat intolerance, cold intolerance NEUROLOGIC: Absent: headache, focal weakness or paresthesias, dizziness, unsteady gait, seizure, mental status changes, bladder or bowel incontinence PSYCHIATRIC: Absent: anxiety, depression, suicidal or homicidal ideation, hallucinations. PHYSICAL EXAMINATION GENERAL: Awake, alert to baseline- MR HEAD: Normal with no signs of trauma. EYES: Pupils equal, round and reactive to light, sclera anicteric, conjunctiva clear. No lid lag. EARS, NOSE, THROAT: Ears normal, nares patent, oropharynx clear without exudates. Moist mucous membranes. NECK: Normal range of motion, supple without lymphadenopathy, JVD, or masses. LUNGS: Breath sounds equal, clear to auscultation bilaterally. No wheezes, and no crackles. No accessory muscle use. HEART: Regular rate and rhythm, normal S1 and S2 without murmur, rub or gallop. ABDOMEN: Soft, nontender, not distended, normoactive bowel sounds, no guarding, no rebound, no masses. No hepatomegaly or splenomegaly. MUSCULOSKELETAL: Limited range of motion at all joints. No bony deformities or tenderness. No CVA tenderness. UPPER EXTREMITIES: 2+ pulses, warm, well-perfused. No cyanosis. No clubbing. No peripheral edema. LOWER EXTREMITIES: 2+ pulses, warm, well-perfused. No calf tenderness. No peripheral edema. NEUROLOGICAL: Cranial nerves II-XII intact. Normal speech. Gait not observed- non ambulatory. PSYCHIATRIC: Restless. Limited eye contact. Appropriate mood and affect- baseline. SKIN: Warm, dry, normal turgor, no rashes, normal capillary refill. 3 erythematous papules to the distal RLE noted Laboratory Results - last 24 hr 11/23/16 11/23/16 11/23/16 00:40 00:40 00:40 WBC 7.2 RBC 3.67 Hgb 12.5 Hct 36.9 MCV 100.5 H MCH 34.2 H MCHC 34.0 RDW 14.3 Plt Count 228 MPV 8.6 D Neutrophils % 55.4 Lymphocytes % 35.6 Monocytes % 6.4 Eosinophils % 1.5 Basophils % 1.1 INR 1.16 H D PTT (Actin FS) 31.1 D Sodium Potassium Chloride Carbon Dioxide Anion Gap BUN Creatinine Creat Clearance w eGFR Random Glucose Calcium Total Bilirubin AST ALT Alkaline Phosphatase Total Protein Albumin Serum , Qual Negative 11/23/16 11/23/16 11/23/16 00:40 02:23 06:00 WBC 6.6 RBC 3.74 Hgb 12.6 Hct 37.4 MCV 99.9 H MCH 33.8 H MCHC 33.8 RDW 14.2 Plt Count 217 MPV 8.4 Neutrophils % 60.3 Lymphocytes % 29.7 Monocytes % 7.5 Eosinophils % 1.3 Basophils % 1.2 INR PTT (Actin FS) Sodium Cancelled 142 Potassium Cancelled 4.0 Chloride Cancelled 108 H Carbon Dioxide Cancelled 27 Anion Gap Cancelled 7 L BUN Cancelled 13 D Creatinine Cancelled 0.5 L Creat Clearance w eGFR Cancelled > 60 Random Glucose Cancelled 84 D Calcium Cancelled 8.5 Total Bilirubin Cancelled 0.2 AST Cancelled 27 ALT Cancelled 35 D Alkaline Phosphatase Cancelled 90 Total Protein Cancelled 6.8 Albumin Cancelled 3.8 Serum , Qual ASSESSMENT/PLAN: This is a 26 y/o female with a PMHx of: MR, Seizures, DVTs. Admitted to [facility] for DVT for further evaluation of their emergent condition. Problem List - Problem (1) Dvt femoral (deep venous thrombosis) Assessment/Plan: - Patient has a hx of DVTs (no ACs), patient is non-ambulatory secondary to profound MR - Wells Score 3 - Bilateral Duplex of LE- report B/L femoral DVTs - Xarelto ordered in ED, not given - Lovenox 50mg SQ ordered - Will start Xarelto - Appreciate Social Work Consult for placement Code(s): I82.419 - ACUTE EMBOLISM AND THROMBOSIS OF UNSPECIFIED FEMORAL VEIN (2) Seizures Assessment/Plan: - Will need to verify med list with facility [facility] in the am. - Dilantin level in am - Seizure precautions Code(s): R56.9 - UNSPECIFIED CONVULSIONS (3) Mental retardation Assessment/Plan: - Fall Precautions Code(s): F79 - UNSPECIFIED INTELLECTUAL DISABILITIES (4) DVT prophylaxis Assessment/Plan: - OOB - Xarelto Code(s): HPN0788 - Visit type - Emergency Visit Emergency Visit: Yes ED Registration Date: 11/23/16 Care time: The patient presented to the Emergency Department on the above date and was hospitalized for further evaluation of their emergent condition. - New Patient This patient is new to me today: Yes Date on this admission: 11/23/16 - Critical Care Critical Care patient: No
[2016-11-23] MEDS ORDERED: LORazepam 2 MG/ML SDV VIAL ONE (02:38)
[2016-11-23 02:56] LABS: ALBUMIN 3.8 g/dl (3.4-5.0); ALK PHOS 90 U/L (45-117); ANION GAP 7 (8-16); BILIRUBIN,TOTAL 0.2 mg/dL (0.2-1.0); CALCIUM 8.5 mg/dL (8.5-10.1); CO2 27 mmol/L (21-32); CREATININE 0.5 mg/dL (0.55-1.02); GLUCOSE,RANDOM 84 mg/dL (74-106); SGPT/ALT 35 U/L (12-78); TOT PROT 6.8 g/dl (6.4-8.2)
[2016-11-23 03:00] LABS: SGOT/AST 27 U/L (15-37)
[2016-11-23 06:33] LABS: BASOPHIL 1.2 % (0-2.0); EOSINOPHIL 1.3 % (0-4.5); MCH 33.8 pg (25.7-33.7); MCHC 33.8 g/dl (32.0-36.0); MEAN CELL VOLUME 99.9 fl (80-96); MEAN PLT VOLUME 8.4 fl (7.5-11.1); NEUTROPHILS 60.3 % (42.8-82.8); PLATELET COUNT 217 K/MM3 (134-434); RDW 14.2 % (11.6-15.6); WHITE BLOOD COUNT 6.6 K/mm3 (4.0-10.0)
[2016-11-23] MEDS ORDERED: ENOXAPARIN NA (PORCINE) 60 MG/0.6 ML DISP.SYRIN SQ ONE ×2 (07:23→07:27)
[2016-11-23] MEDS ORDERED: POLYETHYLENE GLYCOL 3350 255 GM BTL PO SCH (07:45)
[2016-11-23] MEDS ORDERED: RIVAROXABAN 20 MG TABLET PO SCH (10:00)
[2016-11-23] MEDS ORDERED: cloBAZam 10 MG TABLET PO PRN (10:00)
[2016-11-23] MEDS ORDERED: PHENobarbital 30 MG TABLET PO PRN (10:00)
[2016-11-23] MEDS: levETIRAcetam 500 MG/5 ML ORAL SOLUTION (UNIT-DOSE CUPS) PO SCH ×2 (10:28→22:43)
[2016-11-23] MEDS: TOPIRAMATE 200 MG TABLET (FP) PO SCH ×2 (10:29→22:41)
[2016-11-23] MEDS: PYRIDOXINE HCL (B-6) 50 MG TABLET (FP) PO SCH (10:29)
[2016-11-23] MEDS: GLYCOPYRROLATE 2 MG TABLET PO SCH ×2 (10:31→22:42)
[2016-11-23] MEDS: THIAMINE HCL 100 MG TABLET (FP) PO SCH ×2 (10:40→22:40)
[2016-11-23] MEDS: LACOSAMIDE 50 MG TABLET PO SCH ×3 (10:40→22:55)
--- NOTE | 2016-11-23 11:31 | HOSP ---
Physical Examination Vital Signs: Vital Signs Temperature 98.2 F 11/22/16 19:49 Pulse Rate 70 11/23/16 06:20 Respiratory Rate 16 11/23/16 06:20 Blood Pressure 105/60 11/23/16 06:20 O2 Sat by Pulse Oximetry (%) 100 11/23/16 06:20 Findings/Remarks: Subjective: The patient was seen and examined at the bedside, she screams and states "what is this" Medications verified with [facility] Continue Lovenox 55mg sq bid Current Medications Generic Name Dose Route Start Last Admin Trade Name Freq PRN Reason Stop Dose Admin Benztropine Mesylate mg 11/23/16 22:00 Cogentin - PO BID JADE Clobazam 10 mg 11/23/16 10:00 Onfi - PO Q12H PRN Docusate Sodium 200 mg 11/23/16 22:00 Colace - PO HS JADE Enoxaparin Sodium 55 mg 11/23/16 19:00 Lovenox - SQ BID@0700,1900 JADE Glycopyrrolate 2 mg 11/23/16 10:00 11/23/16 10:31 Robinul Forte - PO 2 mg BID JADE Administration Haloperidol 10 mg 11/23/16 22:00 Haldol - PO HS JADE Lacosamide 200 mg 11/23/16 10:00 11/23/16 10:40 Vimpat - PO 200 mg BID JADE Administration Levetiracetam 1,000 mg 11/23/16 10:00 11/23/16 10:28 Keppra Oral Solution - PO 1,000 mg BID JADE Administration Lorazepam 0.5 mg 11/23/16 09:00 Ativan Injection - IM DAILY PRN ANXIETY Metformin HCl 500 mg 11/23/16 16:30 Glucophage - PO BIDI JADE Non-Formulary Medication 1 tab 11/23/16 10:00 Cholecalciferol (Vitamin D3) [Vitamin D3] PO DAILY JADE Phenobarbital 30 mg 11/23/16 10:00 Phenobarbital - PO Q12H PRN Phenytoin Sodium 125 mg 11/23/16 14:00 Dilantin Oral Suspension - PO QSHIFT [facility] Pyridoxine HCl 50 mg 11/23/16 10:00 11/23/16 10:29 Vitamin B6 - PO 50 mg DAILY JADE Administration Thiamine HCl 100 mg 11/23/16 10:00 11/23/16 10:40 Vitamin B1 - PO 100 mg BID JADE Administration Topiramate 200 mg 11/23/16 10:00 11/23/16 10:29 Topamax - PO 200 mg BID JADE Administration Objective: Vital Signs Period Temp Pulse Resp BP Sys/Cui Pulse Ox Last 24 Hr 98.2 F 70-97 16-20 105-111/60-62 99-100 Physical Exam: General: NAD, A&Ox0 Patient combative, unable to assess LLE edema > RLE CBCD WBC 6.6 K/mm3 (4.0-10.0) 11/23/16 06:00 RBC 3.74 M/mm3 (3.60-5.2) 11/23/16 06:00 Hgb 12.6 GM/dL (10.7-15.3) 11/23/16 06:00 Hct 37.4 % (32.4-45.2) 11/23/16 06:00 MCV 99.9 fl (80-96) H 11/23/16 06:00 MCHC 33.8 g/dl (32.0-36.0) 11/23/16 06:00 RDW 14.2 % (11.6-15.6) 11/23/16 06:00 Plt Count 217 K/MM3 (134-434) 11/23/16 06:00 MPV 8.4 fl (7.5-11.1) 11/23/16 06:00 CMP Sodium 142 mmol/L (136-145) 11/23/16 02:23 Potassium 4.0 mmol/L (3.5-5.1) 11/23/16 02:23 Chloride 108 mmol/L (98-107) H 11/23/16 02:23 Carbon Dioxide 27 mmol/L (21-32) 11/23/16 02:23 Anion Gap 7 (8-16) L 11/23/16 02:23 BUN 13 mg/dL (7-18) D 11/23/16 02:23 Creatinine 0.5 mg/dL (0.55-1.02) L 11/23/16 02:23 Creat Clearance w eGFR > 60 (>60) 11/23/16 02:23 Random Glucose 84 mg/dL (74-106) D 11/23/16 02:23 Calcium 8.5 mg/dL (8.5-10.1) 11/23/16 02:23 Total Bilirubin 0.2 mg/dL (0.2-1.0) 11/23/16 02:23 AST 27 U/L (15-37) 11/23/16 02:23 ALT 35 U/L (12-78) D 11/23/16 02:23 Alkaline Phosphatase 90 U/L (45-117) 11/23/16 02:23 Total Protein 6.8 g/dl (6.4-8.2) 11/23/16 02:23 Albumin 3.8 g/dl (3.4-5.0) 11/23/16 02:23 Assessment: This is a 26 year old female with MR, seizure disorder, DVTs who presented to the ED with three bumps on her left leg. Plan: 1) B/l DVTs - Started on Lovenox 55mg sq bid - Will need outpatient hypercoaguable workup as this is not her first DVT 2) Seizure disorder - Continue home medications 3) MR - Patient resides at [facility] - Spoke to aunt, she would like to take her home with services, will discuss with SW FULL CODE Labs: CBC, BMP 11/23/16 06:00 11/23/16 02:23
[2016-11-23] MEDS ORDERED: PT OWN MED DRAWER 7, Y5N ONE ×4 (13:41→22:27)
[2016-11-23] MEDS: CHOLECALCIFEROL (VITAMIN D3) 1,000 UNIT TABLET (FP) PO SCH (13:55)
[2016-11-23] MEDS: PHENYTOIN 100 MG/4 ML U-D CUP PO SCH ×2 (13:55→22:41)
[2016-11-23] MEDS: metFORMIN HCL 500 MG TABLET (FP) PO SCH (18:20)
--- NOTE | 2016-11-23 18:38 | EKG ---
Test Reason : Blood Pressure : / mmHG Vent. Rate : 060 BPM Atrial Rate : 060 BPM P-R Int : 168 ms QRS Dur : 082 ms QT Int : 448 ms P-R-T Axes : 033 077 061 degrees QTc Int : 448 ms POOR DATA QUALITY, INTERPRETATION MAY BE ADVERSELY AFFECTED Suspect unspecified pacemaker failure NORMAL SINUS RHYTHM WITH SINUS ARRHYTHMIA NORMAL ECG NO PREVIOUS ECGS AVAILABLE Confirmed by MICKY RODRIGUEZ, CAMELIA ([id number]) on 11/23/2016 6:38:19 PM Referred By: Confirmed By:CAMELIA WEEKS MD
[2016-11-23] MEDS ORDERED: ENOXAPARIN NA (PORCINE) 60 MG/0.6 ML DISP.SYRIN SQ SCH ×2 (19:00→22:00)
[2016-11-23] MEDS ORDERED: DOCUSATE SODIUM 100 MG CAPSULE (FP) PO SCH (22:00)
[2016-11-23] MEDS ORDERED: HALOPERIDOL 5 MG TABLET (FP) PO SCH (22:00)
[2016-11-23] MEDS ORDERED: BENZTROPINE MESYLATE 1 MG TABLET (FP) PO SCH (22:00)
[2016-11-24] MEDS: PHENYTOIN 100 MG/4 ML U-D CUP PO SCH ×2 (06:16→13:53)
[2016-11-24] MEDS: metFORMIN HCL 500 MG TABLET (FP) PO SCH ×2 (06:17→17:51)
[2016-11-24] MEDS ORDERED: PT OWN MED DRAWER 7, Y5N ONE (06:37)
[2016-11-24] MEDS ORDERED: INSULIN (NOVOLOG) ASPART 100 UNITS/ML 10ML VIAL ONE (06:39)
[2016-11-24 07:26] LABS: BASOPHIL 1.4 % (0-2.0); EOSINOPHIL 1.6 % (0-4.5); MCH 33.7 pg (25.7-33.7); MCHC 33.8 g/dl (32.0-36.0); MEAN CELL VOLUME 99.6 fl (80-96); MEAN PLT VOLUME 8.4 fl (7.5-11.1); NEUTROPHILS 47.6 % (42.8-82.8); PLATELET COUNT 238 K/MM3 (134-434); RDW 14.1 % (11.6-15.6); WHITE BLOOD COUNT 4.8 K/mm3 (4.0-10.0)
[2016-11-24 07:51] LABS: ALBUMIN 3.6 g/dl (3.4-5.0); ANION GAP 7 (8-16); BILIRUBIN,TOTAL 0.3 mg/dL (0.2-1.0); CALCIUM 8.7 mg/dL (8.5-10.1); CO2 27 mmol/L (21-32); CREATININE 0.5 mg/dL (0.55-1.02); GLUCOSE,RANDOM 76 mg/dL (74-106); SGOT/AST 10 U/L (15-37); SGPT/ALT 26 U/L (12-78); TOT PROT 6.4 g/dl (6.4-8.2)
[2016-11-24 07:52] LABS: ALK PHOS 75 U/L (45-117)
[2016-11-24] MEDS ORDERED: RIVAROXABAN 15 MG TABLET PO SCH (10:00)
[2016-11-24] MEDS: levETIRAcetam 500 MG/5 ML ORAL SOLUTION (UNIT-DOSE CUPS) PO SCH (10:18)
[2016-11-24] MEDS: CHOLECALCIFEROL (VITAMIN D3) 1,000 UNIT TABLET (FP) PO SCH (10:18)
[2016-11-24] MEDS: THIAMINE HCL 100 MG TABLET (FP) PO SCH (10:18)
[2016-11-24] MEDS: PYRIDOXINE HCL (B-6) 50 MG TABLET (FP) PO SCH (10:19)
[2016-11-24] MEDS: GLYCOPYRROLATE 2 MG TABLET PO SCH (10:19)
[2016-11-24] MEDS: TOPIRAMATE 200 MG TABLET (FP) PO SCH (10:20)
--- NOTE | 2016-11-24 12:05 | DS ---
Physical Examination Vital Signs: Vital Signs Temperature 97.3 F L 11/24/16 10:15 Pulse Rate 75 11/24/16 10:15 Respiratory Rate 18 11/24/16 10:15 Blood Pressure 111/66 11/24/16 10:15 O2 Sat by Pulse Oximetry (%) 100 11/23/16 06:20 Labs: CBC, BMP 11/24/16 06:00 11/24/16 06:00 Discharge Summary Reason For Visit: DVT Current Active Problems DVT (deep venous thrombosis) (Acute) DVT prophylaxis (Acute) Mental retardation (Acute) Condition: Improved - Instructions Diet, Activity, Other Instructions: Please return to the ED with new, persistent, or worsening symptoms. Please follow-up with Dr. Zamora [phone] in the next 3-5 days for further management of your DVTs. Continue Taking Xarelto 15mg by mouth twice a day for 21 days. Then you will need to get a prescription from Dr. Zamora for Xarelto 20mg daily to be started after the initial 21 days of 15mg twice a day. Please follow-up with your neurologist within 1 week. Disposition: HOME - Home Medications Comprehensive Discharge Medication List: Ambulatory Orders Benztropine Mesylate 1 tab BID 07/24/16 Cholecalciferol (Vitamin D3) [Vitamin D3] 1 tab PO DAILY 07/24/16 Clobazam [Onfi -] 10 mg PO BID 07/24/16 Docusate Sodium [Colace -] 2 cap PO HS 07/24/16 Glycopyrrolate [Robinul Forte -] 2 mg PO BID 07/24/16 Haloperidol 10 mg PO HS 07/24/16 Lacosamide [Vimpat -] 200 mg PO BID 07/24/16 Levetiracetam [Keppra Oral Solution -] 1,000 mg PO BID 07/24/16 Metformin HCl 500 mg PO BID 07/24/16 Phenobarbital - 32.4 mg PO BID 07/24/16 Phenytoin Oral Suspension [Dilantin Oral Suspension 100 MG/4 ML] 125 mg PO QSHIFT 07/24/16 Polyethylene Glycol 3350 [Miralax 255 gm Btl -] 527 gm PO WEEKLY 07/24/16 Pyridoxine HCl (B-6) [Vitamin B6 -] 1 tab DAILY 04/19/17 Thiamine HCl [B-1] 100 mg PO BID 07/24/16 Topiramate [Topamax -] 200 mg PO BID 07/24/16 Rivaroxaban [Xarelto -] 15 mg PO BID #42 tab 11/24/16
[2016-11-24] MEDS: LACOSAMIDE 50 MG TABLET PO SCH (13:52)
[2016-11-24 18:51] VITALS: BP 96/60; PULSE 75; TEMP 98.8
== END 2016-11-24 20:12 | DRG 197 ==
LOC: JER 18:59 → JERFT 23:21 → JERBED 11-23 00:55 → J7W 11-23 07:37
PROVIDERS: ADMIT Internal Medicine; ATTEND Registered Nurse
DX: I82.413 Acute embolism and thrombosis of femoral vein, bilateral (principal); F73 Profound intellectual disabilities; G40.89 Other seizures; Z86.718 Personal history of other venous thrombosis and embolism
CPT/HCPCS: 36415; 80053; 84703; 85025; 85610; 85730; 93005; 93010; 93970-TC; 99283-25

== ENCOUNTER 2017-01-28 19:30 | Emergency (ER) | payer OTHER ==
[2017-01-28 19:42] VITALS: BP 145/110; PULSE 99; BMI 22.4
--- NOTE | 2017-01-28 21:15 | PDOC ---
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 This life underwriter spoke with nurse Vangie, who expressed concern for possible clot in left arm due to increased coolness and bruising. She also was concerned with possible herpes outbreak to mucosa of lower lip. They deny fever, cough, congestion, change in mentation, rectal bleeding, hematuria, diff breathing, or any other complaints at this time. Vaccinations up to date. Past History - Past Medical History Allergies/Adverse Reactions: Allergies Allergy/AdvReac Type Severity Reaction Status Date / Time No Known Drug Allergies Allergy Verified 01/28/17 19:43 strawberry Allergy Hives Verified 01/28/17 19:43 Home Medications: Ambulatory Orders Benztropine Mesylate 1 tab BID 07/24/16 Cholecalciferol (Vitamin D3) [Vitamin D3] 1 tab PO DAILY 07/24/16 Clobazam [Onfi -] 10 mg PO BID 07/24/16 Docusate Sodium [Colace -] 2 cap PO HS 07/24/16 Glycopyrrolate [Robinul Forte -] 2 mg PO BID 07/24/16 Haloperidol 10 mg PO HS 07/24/16 Lacosamide [Vimpat -] 200 mg PO BID 07/24/16 Levetiracetam [Keppra Oral Solution -] 1,000 mg PO BID 07/24/16 Metformin HCl 500 mg PO BID 07/24/16 Phenobarbital - 32.4 mg PO BID 07/24/16 Phenytoin Oral Suspension [Dilantin Oral Suspension 100 MG/4 ML] 125 mg PO QSHIFT 07/24/16 Polyethylene Glycol 3350 [Miralax 255 gm Btl -] 527 gm PO WEEKLY 07/24/16 Pyridoxine HCl (B-6) [Vitamin B6 -] 1 tab DAILY 07/24/16 Thiamine HCl [B-1] 100 mg PO BID 07/24/16 Topiramate [Topamax -] 200 mg PO BID 07/24/16 Rivaroxaban [Xarelto -] 15 mg PO BID #42 tab 11/24/16 Seizures: Yes Other medical history: gait disorder, TBI, autism, DVT - Surgical History Abdominal Surgery: Yes - Suicide/Smoking/Psychosocial Hx Smoking History: Never smoked Have you smoked in the past 12 months: No Hx Alcohol Use: No Drug/Substance Use Hx: No Substance Use Type: None *Physical Exam - Vital Signs Last Vital Signs Temp Pulse Resp BP Pulse Ox 99 H 20 145/110 99 01/28/17 19:38 01/28/17 19:38 01/28/17 19:38 01/28/17 19:38 ED Treatment Course - LABORATORY CBC & Chemistry Diagram: 01/28/17 22:25 01/28/17 22:25 *DC/Admit/Observation/Transfer Diagnosis at time of Disposition: Seizures Fall Qualifiers: Encounter type: initial encounter Qualified Code(s): W19.XXXA - Unspecified fall, initial encounter; W19.XXXA - Unspecified fall, initial encounter - Discharge Dispostion Disposition: [facility] F[facility] Condition at time of disposition: Stable Admit: No - Patient Instructions Printed Discharge Instructions: DI for Seizure Disorder -- Adult Additional Instructions: Follow up with facility doctors for further evaluation. Return if any concerns for further evaluation. Print Language: KITTITIAN
[2017-01-28] MEDS ORDERED: HALOPERIDOL LACTATE 5 MG/ML IM ONE (21:54)
[2017-01-28] MEDS ORDERED: HALOPERIDOL LACTATE 5 MG/ML ONE (22:01)
[2017-01-28 22:35] LABS: BASOPHIL 0.4 % (0-2.0); EOSINOPHIL 0.3 % (0-4.5); MCH 32.2 pg (25.7-33.7); MCHC 34.4 g/dl (32.0-36.0); MEAN CELL VOLUME 93.7 fl (80-96); MEAN PLT VOLUME 7.4 fl (7.5-11.1); NEUTROPHILS 51.5 % (42.8-82.8); PLATELET COUNT 256 K/MM3 (134-434); RDW 13.3 % (11.6-15.6); WHITE BLOOD COUNT 6.5 K/mm3 (4.0-10.0)
[2017-01-28 22:47] LABS: INR 1.17 (0.82-1.09); PROTHROMBIN TIME (PATIENT) 13.2 SEC (9.98-11.88)
[2017-01-28 22:50] LABS: ACTIVATED PTT 24.2 SECONDS (26.9-34.4)
[2017-01-28 22:57] LABS: ALK PHOS 149 U/L (45-117); ANION GAP 9 (8-16); BILIRUBIN,TOTAL 0.4 mg/dL (0.2-1.0); CALCIUM 8.5 mg/dL (8.5-10.1); CO2 23 mmol/L (21-32); CREATININE 0.6 mg/dL (0.55-1.02); GLUCOSE,RANDOM 89 mg/dL (74-106); SGOT/AST 24 U/L (15-37); SGPT/ALT 25 U/L (12-78); TOT PROT 7.7 g/dl (6.4-8.2)
== END 2017-01-29 02:50 ==
LOC: JER 19:30
PROC: 3E023NZ Introduction of Analgesics, Hypnotics, Sedatives into Muscle, Percutaneous Approach (ICD-10-PCS; principal; 2017-01-28)
DX: G40.909 Epilepsy, unspecified, not intractable, without status epilepticus (principal); F79 Unspecified intellectual disabilities; D68.61 Antiphospholipid syndrome; Z79.01 Long term (current) use of anticoagulants; S06.9X0A Unspecified intracranial injury without loss of consciousness, initial encounter; W18.39XA Other fall on same level, initial encounter; Y93.9 Activity, unspecified; Y92.129 Unspecified place in nursing home as the place of occurrence of the external cause
CPT/HCPCS: 36415; 70450-TC; 70486-TC; 73030-TC-LT; 73070-TC-LT; 73110-TC-LT; 73130-TC-LT; 80053; 80185; 85025; 85610; 85730; 93971; 99282-25

== ENCOUNTER 2018-04-17 10:31 | Emergency (ER) | payer OTHER ==
[2018-04-17 10:52] VITALS: BP 107/67; PULSE 73; BMI 31.7
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
== END 2018-04-17 11:34 | disposition home or self-care (01) ==
LOC: JERFT 10:31
DX: Z04.3 Encounter for examination and observation following other accident (principal); V53.6XXA Passenger in pick-up truck or van injured in collision with car, pick-up truck or van in traffic accident, initial encounter; Y92.414 Local residential or business street as the place of occurrence of the external cause; Y93.89 Activity, other specified; Y99.8 Other external cause status; G80.8 Other cerebral palsy; F72 Severe intellectual disabilities
CPT/HCPCS: 99281-25

== ENCOUNTER 2020-08-23 16:49 | Emergency (ER) | payer OTHER ==
[2020-08-23 17:01] VITALS: BP 128/91; PULSE 79; TEMP 98.2; BMI 27.4
[2020-08-23] MEDS ORDERED: clonazePAM 2 MG TABLET PO ONE (18:04)
[2020-08-23] MEDS ORDERED: clonazePAM 0.5 MG TABLET ONE (18:07)
== END 2020-08-23 18:42 | disposition home or self-care (01) ==
LOC: JERFT 16:49
DX: Z76.0 Encounter for issue of repeat prescription (principal)
CPT/HCPCS: 99283-25

== ENCOUNTER 2020-08-24 13:22 | Emergency (ER) | payer OTHER ==
[2020-08-24 13:47] VITALS: BP 128/76; PULSE 82; BMI 27.6
== END 2020-08-24 14:00 | disposition home or self-care (01) ==
LOC: JERFT 13:22
DX: Z76.0 Encounter for issue of repeat prescription (principal)
CPT/HCPCS: 99282-25

== ENCOUNTER 2024-09-20 15:32 | Inpatient (IN) | payer OTHER ==
[2024-09-20 17:00] LABS: VENOUS BASE EXCESS 1.2 mmol/L (-2-2); VENOUS O2 SATURATION 94.6 % (70-80); VENOUS PCO2 37.3 mmHg (38-52); VENOUS PH 7.445 (7.310-7.410)
[2024-09-20 17:05] LABS: ABSOLUTE IMMATURE GRANULOCYTES 0.01 x10^3/uL (0.0-0.031); BASOPHILS # 0.05 x10^3/uL (0.01-0.08); EOSINOPHIL % 0.3 % (0.7-5.8); EOSINOPHILS # 0.02 x10^3/uL (0.04-0.36); HEMATOCRIT 44.3 % (34.1-44.9); HEMOGLOBIN 14.7 g/dL (11.2-15.7); MCHC 33.2 g/dl (32.2-35.5); MEAN CELL VOLUME 89.7 fl (79.4-94.8); MEAN PLT VOLUME 9.5 fl (9.4-12.3); MONOCYTE # 0.46 x10^3/uL (0.24-0.86); MONOCYTE % 6.8 % (4.7-12.5); PLATELET COUNT 200 x10^3/uL (182-369); RDW 12.4 % (12.1-16.8)
[2024-09-20] MEDS ORDERED: LORazepam 2 MG/ML SDV VIAL ONE (17:08)
[2024-09-20 17:25] LABS: POTASSIUM 3.7 mmol/L (3.5-5.1)
[2024-09-20 17:27] LABS: CALCIUM 8.9 mg/dL (8.5-10.1)
[2024-09-20 17:28] LABS: ALBUMIN 3.6 g/dl (3.4-5.0); BLOOD UREA NITROGEN 11.6 mg/dL (7-18); MAGNESIUM 2.2 mg/dL (1.8-2.4)
[2024-09-20 17:31] LABS: CREATININE 0.7 mg/dL (0.55-1.3)
[2024-09-20 17:33] LABS: BILIRUBIN,TOTAL 0.4 mg/dL (0.2-1); TOT PROT 7.4 g/dl (6.4-8.2)
[2024-09-20] MEDS: PHENobarbital 30 MG TABLET PO SCH (21:46)
[2024-09-20] MEDS: THIAMINE 100 MG TABLET PO SCH (21:46)
[2024-09-20] MEDS: levETIRAcetam 500 MG/5 ML ORAL SOLUTION (UNIT-DOSE CUPS) PO SCH (21:47)
[2024-09-20] MEDS ORDERED: LACOSAMIDE 100 MG TABLET PO SCH (22:00)
[2024-09-20] MEDS: levETIRAcetam 500 MG/5 ML INJECTION VIAL IVPB SCH (22:54)
[2024-09-20] MEDS: PHENobarbital SODIUM 65 MG/1 ML VIAL IVPUSH SCH (22:54)
[2024-09-21 00:11] VITALS: BMI 28.0
[2024-09-21 01:44] LABS: EPI CELLS 11 /uL (0-25.1); HYALINE CASTS 0 /uL (0-3.1); PH,URINE >= 9.0 (5.0-8.0); URINE APPEARANCE CLOUDY; URINE BACTERIA 3050 /uL (0-1359); URINE BILIRUBIN NEGATIVE (NEGATIVE); URINE COLOR YELLOW; URINE GLUCOSE (UA) NEGATIVE (NEGATIVE); URINE KETONE NEGATIVE (NEGATIVE); URINE LEUK ESTERASE NEGATIVE (NEGATIVE); URINE NITRITE NEGATIVE (NEGATIVE); URINE PROTEIN NEGATIVE (NEGATIVE); URINE UROBILINOGEN 0.2 mg/dL (0.2-1.0); URINE WBC 4 /uL (0-25.8)
[2024-09-21 01:48] LABS: URINE RBC 55.1 /uL (0-23.9)
[2024-09-21] MEDS: LORazepam 2 MG/ML SDV VIAL IVPUSH PRN (05:46)
[2024-09-21 07:01] LABS: ABSOLUTE IMMATURE GRANULOCYTES 0.03 x10^3/uL (0.0-0.031); BASOPHILS # 0.04 x10^3/uL (0.01-0.08); EOSINOPHIL % 0.1 % (0.7-5.8); EOSINOPHILS # 0.01 x10^3/uL (0.04-0.36); HEMATOCRIT 42.2 % (34.1-44.9); HEMOGLOBIN 14.1 g/dL (11.2-15.7); MCHC 33.4 g/dl (32.2-35.5); MEAN CELL VOLUME 88.8 fl (79.4-94.8); MEAN PLT VOLUME 9.5 fl (9.4-12.3); MONOCYTE # 0.62 x10^3/uL (0.24-0.86); MONOCYTE % 7.8 % (4.7-12.5); PLATELET COUNT 196 x10^3/uL (182-369); RDW 12.1 % (12.1-16.8)
[2024-09-21 07:23] LABS: POTASSIUM 3.8 mmol/L (3.5-5.1)
[2024-09-21 07:25] LABS: ALBUMIN 3.5 g/dl (3.4-5.0); BLOOD UREA NITROGEN 12.1 mg/dL (7-18); CALCIUM 9.3 mg/dL (8.5-10.1); MAGNESIUM 2.1 mg/dL (1.8-2.4)
[2024-09-21 07:29] LABS: CREATININE 0.8 mg/dL (0.55-1.3)
[2024-09-21 07:30] LABS: BILIRUBIN,TOTAL 0.4 mg/dL (0.2-1)
[2024-09-21] MEDS ORDERED: MIDAZOLAM HCL 5 MG/1 ML Single Dose Vial IM PRN (07:54)
[2024-09-21] MEDS: levETIRAcetam 500 MG/5 ML INJECTION VIAL IVPB SCH (09:07)
[2024-09-21] MEDS: PHENobarbital SODIUM 65 MG/1 ML VIAL IVPUSH SCH (09:09)
[2024-09-21] MEDS: PYRIDOXINE HCL (B-6) 50 MG TABLET (FP) PO SCH (09:12)
[2024-09-21] MEDS ORDERED: PHENobarbital 20 MG/5 ML UNIT-DOSE CUP PO SCH (10:00)
[2024-09-21] MEDS: PHENobarbital 20 MG/5 ML UNIT-DOSE CUP PO ONE (10:42)
[2024-09-21] MEDS: PHENobarbital SODIUM 65 MG/1 ML VIAL IVPUSH ONE (10:51)
[2024-09-21] MEDS: Lacosamide 200 MG/20 ML VIAL IVPB ONE (10:52)
[2024-09-21] MEDS: LACOSAMIDE 200 MG TABLET PO SCH (11:03)
[2024-09-21] MEDS: cloBAZam 10 MG TABLET PO ONE (13:08)
[2024-09-21] MEDS: RIVAROXABAN 10 MG TABLET PO SCH (17:14)
[2024-09-21] MEDS: cloBAZam 10 MG TABLET PO SCH (21:23)
[2024-09-21] MEDS: levETIRAcetam 500 MG/5 ML ORAL SOLUTION (UNIT-DOSE CUPS) PO SCH (21:23)
[2024-09-21] MEDS: PHENobarbital 20 MG/5 ML UNIT-DOSE CUP PO SCH (21:24)
[2024-09-21] MEDS: Lacosamide 50 MG/5 ML ORAL SOLUTION UNIT CUPS PO SCH (21:26)
[2024-09-21] MEDS ORDERED: cloBAZam 10 MG TABLET PO SCH (22:00)
[2024-09-22 10:44] LABS: ABSOLUTE IMMATURE GRANULOCYTES 0.02 x10^3/uL (0.0-0.031); BASOPHILS # 0.03 x10^3/uL (0.01-0.08); EOSINOPHIL % 0.4 % (0.7-5.8); EOSINOPHILS # 0.03 x10^3/uL (0.04-0.36); HEMATOCRIT 43.3 % (34.1-44.9); HEMOGLOBIN 14.3 g/dL (11.2-15.7); MEAN PLT VOLUME 10.5 fl (9.4-12.3); MONOCYTE # 0.43 x10^3/uL (0.24-0.86); MONOCYTE % 6.4 % (4.7-12.5); PLATELET COUNT 170 x10^3/uL (182-369); RDW 12.4 % (12.1-16.8)
[2024-09-22 11:13] LABS: POTASSIUM 3.8 mmol/L (3.5-5.1)
[2024-09-22 11:34] LABS: BLOOD UREA NITROGEN 14.4 mg/dL (7-18)
[2024-09-22 11:35] LABS: ALBUMIN 3.4 g/dl (3.4-5.0); MAGNESIUM 2.3 mg/dL (1.8-2.4)
[2024-09-22 11:38] LABS: CREATININE 0.9 mg/dL (0.55-1.3); PHOSPHOROUS 2.8 mg/dL (2.5-4.9)
[2024-09-22 11:39] LABS: BILIRUBIN,TOTAL 0.3 mg/dL (0.2-1)
[2024-09-22] MEDS: levETIRAcetam 500 MG/5 ML INJECTION VIAL IVPB ONE (11:56)
[2024-09-22] MEDS: PHENobarbital SODIUM 65 MG/1 ML VIAL IVPUSH ONE (11:56)
[2024-09-22 12:02] LABS: TOT PROT 6.7 g/dl (6.4-8.2)
[2024-09-22 12:45] VITALS: TEMP 97.5
[2024-09-22 14:41] VITALS: BP 114/81; PULSE 77; RESP 18
== END 2024-09-22 17:00 | disposition home or self-care (01) | DRG 53 ==
LOC: JER 15:32 → JERBED 16:28 → J4W 19:45 → OBSVTOIN 09-21 09:25
PROVIDERS: ADMIT Internal Medicine; ATTEND Internal Medicine
DX: G40.909 Epilepsy, unspecified, not intractable, without status epilepticus (principal); F79 Unspecified intellectual disabilities; R00.1 Bradycardia, unspecified; Z86.718 Personal history of other venous thrombosis and embolism
CPT/HCPCS: 0241U-QW; 36415; 71045-TC-FY; 80053; 80177; 80184; 81003; 82803; 82962; 83605; 83735; 84100; 84484; 85025; 93005; 93010; 93306-TC; 99285-25; G0378; G0480

== ENCOUNTER 2024-10-26 17:57 | Inpatient (IN) | payer OTHER ==
[2024-10-26] MEDS ORDERED: MIDAZOLAM HCL 5 MG/1 ML Single Dose Vial ONE (18:00)
[2024-10-26 18:47] LABS: ABSOLUTE IMMATURE GRANULOCYTES 0.03 x10^3/uL (0.0-0.031); BASOPHILS # 0.06 x10^3/uL (0.01-0.08); EOSINOPHIL % 0.3 % (0.7-5.8); EOSINOPHILS # 0.02 x10^3/uL (0.04-0.36); MCHC 32.4 g/dl (32.2-35.5); MEAN CELL VOLUME 92.3 fl (79.4-94.8); MEAN PLT VOLUME 10.5 fl (9.4-12.3); MONOCYTE # 0.52 x10^3/uL (0.24-0.86); MONOCYTE % 7.4 % (4.7-12.5); RDW 12.5 % (12.1-16.8)
[2024-10-26 19:10] LABS: CO2 21.0 mmol/L (21-32); GLUCOSE,RANDOM 104.0 mg/dL (74-106)
[2024-10-26 19:13] LABS: CREATININE 1.2 mg/dL (0.55-1.3)
[2024-10-26 19:14] LABS: SGOT/AST 19.0 U/L (15-37); SGPT/ALT 28.0 U/L (13-61)
[2024-10-26 19:15] LABS: TOT PROT 8.2 g/dl (6.4-8.2)
[2024-10-26 19:17] LABS: ALK PHOS 126.0 U/L (45-117)
[2024-10-26] MEDS ORDERED: levETIRAcetam 500 MG/5 ML INJECTION VIAL IVPB ONE (20:14)
[2024-10-26] MEDS: levETIRAcetam 500 MG/5 ML INJECTION VIAL IVPB ONE (20:35)
[2024-10-27 00:54] VITALS: BMI 23.0
[2024-10-27] MEDS ORDERED: HALOPERIDOL 1 MG TABLET PO PRN ×2 (04:15→18:12)
[2024-10-27] MEDS ORDERED: LORazepam 4 MG/1 ML VIAL IVPUSH PRN ×2 (04:53→18:12)
[2024-10-27] MEDS: GABAPENTIN 100 MG CAPSULE PO SCH (05:45)
[2024-10-27] MEDS: THIAMINE 100 MG TABLET PO SCH (05:45)
[2024-10-27] MEDS ORDERED: LACOSAMIDE 50 MG TABLET PO SCH (10:00)
[2024-10-27] MEDS: levETIRAcetam 500 MG/5 ML ORAL SOLUTION (UNIT-DOSE CUPS) PO SCH (10:23)
[2024-10-27] MEDS: PYRIDOXINE HCL (B-6) 50 MG TABLET (FP) PO SCH (10:24)
[2024-10-27] MEDS: GLYCOPYRROLATE 1 MG TABLET PO SCH ×2 (10:25→21:34)
[2024-10-27] MEDS ORDERED: levETIRAcetam 500 MG/5 ML INJECTION VIAL IVPB SCH (10:45)
[2024-10-27] MEDS: LORazepam 4 MG/1 ML VIAL IM ONE (12:22)
[2024-10-27] MEDS ORDERED: LACOSAMIDE 200 MG TABLET PO SCH (14:00)
[2024-10-27] MEDS: levETIRAcetam 500 MG/5 ML INJECTION VIAL IVPB SCH ×2 (14:22→21:34)
[2024-10-27] MEDS: RIVAROXABAN 10 MG TABLET PO SCH (18:05)
[2024-10-27] MEDS ORDERED: HALOPERIDOL 0.5 MG TABLET PO PRN (18:56)
[2024-10-27] MEDS: HALOPERIDOL 1 MG TABLET PO SCH (21:34)
[2024-10-27] MEDS ORDERED: HALOPERIDOL 1 MG TABLET PO SCH (22:00)
[2024-10-27] MEDS ORDERED: HALOPERIDOL 2 MG TABLET PO SCH (22:00)
[2024-10-28] MEDS: levETIRAcetam 500 MG/5 ML INJECTION VIAL IVPB SCH (09:34)
[2024-10-28] MEDS: PYRIDOXINE HCL (B-6) 50 MG TABLET (FP) PO SCH (09:34)
[2024-10-28] MEDS: THIAMINE 100 MG TABLET PO SCH (09:35)
[2024-10-28] MEDS ORDERED: LACOSAMIDE 200 MG TABLET PO SCH (10:00)
[2024-10-28] MEDS ORDERED: levETIRAcetam 500 MG TABLET (FP) PO SCH (10:00)
[2024-10-28 12:42] LABS: CO2 28.0 mmol/L (21-32); GLUCOSE,RANDOM 84.0 mg/dL (74-106)
[2024-10-28 12:45] LABS: CREATININE 0.9 mg/dL (0.55-1.3); SGOT/AST 19.0 U/L (15-37); SGPT/ALT 27.0 U/L (13-61)
[2024-10-28 12:47] LABS: TOT PROT 7.1 g/dl (6.4-8.2)
[2024-10-28 12:48] LABS: ALK PHOS 113.0 U/L (45-117)
[2024-10-28 13:34] VITALS: BP 121/81; PULSE 65; RESP 20; TEMP 98
[2024-10-28] MEDS ORDERED: RIVAROXABAN 10 MG TABLET PO SCH (18:00)
[2024-10-29] MEDS ORDERED: levETIRAcetam 500 MG TABLET (FP) PO SCH (10:00)
[2024-10-29] MEDS ORDERED: LACOSAMIDE 200 MG TABLET PO SCH (10:00)
== END 2024-10-28 13:33 | disposition home or self-care (01) | DRG 53 ==
LOC: JER 17:57 → JERBED 18:08 → J4W 10-27 00:42 → OBSVTOIN 10-27 09:41 → J8W 10-27 17:28
PROVIDERS: ADMIT Internal Medicine; ATTEND Nurse Practitioner Acute Care
DX: G40.909 Epilepsy, unspecified, not intractable, without status epilepticus (principal); F84.0 Autistic disorder; F79 Unspecified intellectual disabilities; R45.1 Restlessness and agitation
CPT/HCPCS: 36415; 70450-TC; 71045-TC-FY; 80053; 80184; 82962; 84703; 85025; 93005; 93010; 99285-25; G0378; G0480

== ENCOUNTER 2024-10-29 18:17 | Inpatient (IN) | payer OTHER ==
[2024-10-29 19:03] LABS: ABSOLUTE IMMATURE GRANULOCYTES 0.01 x10^3/uL (0.0-0.031); BASOPHILS # 0.06 x10^3/uL (0.01-0.08); EOSINOPHIL % 0.3 % (0.7-5.8); EOSINOPHILS # 0.02 x10^3/uL (0.04-0.36); MCHC 32.6 g/dl (32.2-35.5); MEAN CELL VOLUME 91.3 fl (79.4-94.8); MEAN PLT VOLUME 10.8 fl (9.4-12.3); MONOCYTE # 0.78 x10^3/uL (0.24-0.86); MONOCYTE % 9.8 % (4.7-12.5); RDW 12.5 % (12.1-16.8)
[2024-10-29 19:05] LABS: BG HCT 47.0 % (32.4-45.2); VENOUS BASE EXCESS -8.4 mmol/L (-2-2); VENOUS O2 SATURATION 71.8 % (70-80); VENOUS PCO2 42.9 mmHg (38-52); VENOUS PH 7.252 (7.310-7.410)
[2024-10-29 19:30] LABS: CO2 18 mmol/L (21-32); GLUCOSE,RANDOM 97 mg/dL (74-106)
[2024-10-29 19:33] LABS: CREATININE 1.1 mg/dL (0.55-1.3); SGOT/AST 37 U/L (15-37); SGPT/ALT 29 U/L (13-61)
[2024-10-29 19:35] LABS: TOT PROT 7.9 g/dl (6.4-8.2)
[2024-10-29 19:36] LABS: ALK PHOS 117 U/L (45-117)
[2024-10-29 20:22] LABS: HCV DIAGNOSTIC IN-HOUSE W/RFLX NON-REACTIVE (NONREACTIVE)
[2024-10-29 20:23] LABS: HIV INTERPRETATION NEGATIVE (NEGATIVE)
[2024-10-29] MEDS ORDERED: levETIRAcetam 500 MG/5 ML INJECTION VIAL IVPB ONE (21:40)
[2024-10-29] MEDS: levETIRAcetam 500 MG/5 ML INJECTION VIAL IVPB ONE (21:52)
[2024-10-30] MEDS ORDERED: KETAMINE HCL 500 MG/10 ML VIAL ONE (07:19)
[2024-10-30] MEDS: KETAMINE HCL 200 MG/20 ML VIAL IM ONE (07:50)
[2024-10-30 08:52] LABS: EPI CELLS >36 /uL (0-25.1); HYALINE CASTS 1 /uL (0-3.1); URINE APPEARANCE CLEAR; URINE BACTERIA 1837 /uL (0-1359); URINE BILIRUBIN NEGATIVE (NEGATIVE); URINE COLOR YELLOW; URINE GLUCOSE (UA) NEGATIVE (NEGATIVE); URINE KETONE 1+ (NEGATIVE); URINE LEUK ESTERASE NEGATIVE (NEGATIVE); URINE NITRITE NEGATIVE (NEGATIVE); URINE PROTEIN 2+ (NEGATIVE); URINE RBC 23 /uL (0-23.9); URINE UROBILINOGEN 1.0 mg/dL (0.2-1.0); URINE WBC 21 /uL (0-25.8)
[2024-10-30 09:31] LABS: MCHC 34.2 g/dl (32.2-35.5); MEAN CELL VOLUME 88.8 fl (79.4-94.8); MEAN PLT VOLUME 10.5 fl (9.4-12.3); RDW 12.5 % (12.1-16.8)
[2024-10-30] MEDS ORDERED: LACOSAMIDE 50 MG TABLET PO SCH (10:00)
[2024-10-30] MEDS ORDERED: levETIRAcetam 500 MG/5 ML ORAL SOLUTION (UNIT-DOSE CUPS) PO SCH (10:00)
[2024-10-30] MEDS ORDERED: LACOSAMIDE 100 MG TABLET PO SCH (10:00)
[2024-10-30] MEDS ORDERED: levETIRAcetam 500 MG/5 ML INJECTION VIAL IVPB ONE (10:02)
[2024-10-30 10:14] LABS: CO2 24.0 mmol/L (21-32)
[2024-10-30 10:15] LABS: GLUCOSE,RANDOM 93.0 mg/dL (74-106)
[2024-10-30] MEDS: levETIRAcetam 500 MG/5 ML INJECTION VIAL IVPB SCH (10:15)
[2024-10-30 10:17] LABS: CREATININE 0.7 mg/dL (0.55-1.3); SGOT/AST 19.0 U/L (15-37); SGPT/ALT 25.0 U/L (13-61)
[2024-10-30 10:19] LABS: TOT PROT 7.1 g/dl (6.4-8.2)
[2024-10-30 10:20] LABS: ALK PHOS 106.0 U/L (45-117)
[2024-10-30] MEDS: RIVAROXABAN 10 MG TABLET PO SCH (11:00)
[2024-10-30] MEDS: LORazepam 4 MG/1 ML VIAL IVPUSH PRN (18:48)
[2024-10-30] MEDS: LACOSAMIDE 50 MG TABLET PO SCH (19:22)
[2024-10-31] MEDS: LORazepam 4 MG/1 ML VIAL IM STA (09:27)
[2024-10-31 11:54] LABS: CO2 25.0 mmol/L (21-32)
[2024-10-31 11:55] LABS: GLUCOSE,RANDOM 102.0 mg/dL (74-106)
[2024-10-31 11:57] LABS: SGOT/AST 21.0 U/L (15-37); SGPT/ALT 28.0 U/L (13-61)
[2024-10-31 11:58] LABS: CREATININE 0.8 mg/dL (0.55-1.3)
[2024-10-31 11:59] LABS: TOT PROT 7.4 g/dl (6.4-8.2)
[2024-10-31 12:00] LABS: ALK PHOS 110.0 U/L (45-117)
[2024-11-01 10:04] LABS: CO2 19.0 mmol/L (21-32); GLUCOSE,RANDOM 97.0 mg/dL (74-106)
[2024-11-01 10:07] LABS: CREATININE 0.9 mg/dL (0.55-1.3); SGPT/ALT 31.0 U/L (13-61)
[2024-11-01 10:08] LABS: SGOT/AST 28.0 U/L (15-37)
[2024-11-01 10:09] LABS: TOT PROT 6.9 g/dl (6.4-8.2)
[2024-11-01 10:10] LABS: ALK PHOS 107.0 U/L (45-117)
[2024-11-01] MEDS ORDERED: LORazepam 4 MG/1 ML VIAL IVPUSH PRN (15:57)
[2024-11-01 19:29] VITALS: BMI 26.7
[2024-11-01] MEDS: levETIRAcetam 500 MG/5 ML INJECTION VIAL IVPB SCH (22:48)
[2024-11-02] MEDS: LACOSAMIDE 200 MG TABLET PO SCH (09:22)
[2024-11-02] MEDS: levETIRAcetam 500 MG/5 ML ORAL SOLUTION (UNIT-DOSE CUPS) PO SCH (09:22)
[2024-11-02] MEDS: RIVAROXABAN 10 MG TABLET PO SCH (09:22)
[2024-11-02 13:13] VITALS: PULSE 72
[2024-11-02 14:45] VITALS: BP 109/69; RESP 16; TEMP 98.1
== END 2024-11-02 16:22 | disposition home or self-care (01) | DRG 53 ==
LOC: JER 18:17 → JERBED 22:19 → J6W TELE 10-30 20:49 → J5S 11-01 15:42
PROVIDERS: ADMIT Hospitalist
DX: G40.909 Epilepsy, unspecified, not intractable, without status epilepticus (principal); F79 Unspecified intellectual disabilities; E28.2 Polycystic ovarian syndrome; R13.10 Dysphagia, unspecified
CPT/HCPCS: 36415; 70450-TC; 71045-TC-FY; 80048; 80053; 80177; 81003; 82550; 82553; 82803; 82962; 83735; 84100; 85025; 85027; 86803; 87086; 87389; 93005; 93010; 99285-25

== ENCOUNTER 2025-01-27 00:20 | Observation (INO) | payer OTHER ==
[2025-01-27] MEDS ORDERED: MIDAZOLAM HCL 5 MG/1 ML Single Dose Vial ONE (00:39)
[2025-01-27] MEDS: MIDAZOLAM HCL 5 MG/1 ML Single Dose Vial IM ONE ×2 (00:57→03:28)
[2025-01-27] MEDS: MIDAZOLAM HCL 5 MG/1 ML Single Dose Vial IVPUSH ONE (00:58)
[2025-01-27 02:08] LABS: ABSOLUTE IMMATURE GRANULOCYTES 0.03 x10^3/uL (0.0-0.031); BASOPHILS # 0.04 x10^3/uL (0.01-0.08); EOSINOPHIL % 0.2 % (0.7-5.8); EOSINOPHILS # 0.02 x10^3/uL (0.04-0.36); MCHC 33.2 g/dl (32.2-35.5); MEAN CELL VOLUME 94.4 fl (79.4-94.8); MEAN PLT VOLUME 9.8 fl (9.4-12.3); MONOCYTE # 0.54 x10^3/uL (0.24-0.86); MONOCYTE % 6.2 % (4.7-12.5); RDW 13.9 % (12.1-16.8)
[2025-01-27 02:16] LABS: INR 1.18 (0.83-1.09); PROTHROMBIN TIME (PATIENT) 13.0 SEC (9.7-13.0)
[2025-01-27 02:19] LABS: ACTIVATED PTT 23.8 SECONDS (25.2-36.5)
[2025-01-27 02:34] LABS: GLUCOSE,RANDOM 80.0 mg/dL (74-106); TOT PROT 7.2 g/dl (6.4-8.2)
[2025-01-27 02:35] LABS: CO2 22.0 mmol/L (21-32)
[2025-01-27 02:37] LABS: ALK PHOS 96.0 U/L (40-150)
[2025-01-27 02:39] LABS: SGOT/AST 64.0 U/L (5-34); SGPT/ALT 31.0 U/L (0-55)
[2025-01-27 02:40] LABS: CREATININE 0.52 mg/dL (0.55-1.3)
[2025-01-27 04:13] LABS: GLUCOSE,RANDOM 77 mg/dL (74-106); TOT PROT 7.5 g/dl (6.4-8.2)
[2025-01-27 04:14] LABS: CO2 22 mmol/L (21-32)
[2025-01-27 04:16] LABS: ALK PHOS 106 U/L (40-150)
[2025-01-27 04:18] LABS: SGOT/AST 63 U/L (5-34); SGPT/ALT 33 U/L (0-55)
[2025-01-27 04:19] LABS: CREATININE 0.53 mg/dL (0.55-1.3)
[2025-01-27] MEDS ORDERED: DEXTROSE 5%-0.45% SALINE 1,000 ML IV SCH (04:45)
[2025-01-27 05:48] VITALS: BMI 26.9
[2025-01-27] MEDS: DEXTROSE 5%-LACTATED RINGERS 1,000 ML IV SCH (06:55)
[2025-01-27] MEDS: levETIRAcetam 500 MG/5 ML INJECTION VIAL IVPB SCH (10:14)
[2025-01-27] MEDS ORDERED: MIDAZOLAM HCL 2 MG/2 ML SINGLE DOSE VIAL ONE (14:29)
[2025-01-27] MEDS: MIDAZOLAM HCL 2 MG/2 ML SINGLE DOSE VIAL IVPUSH ONE (14:35)
[2025-01-27] MEDS ORDERED: PERAMPANEL PEG SCH (22:00)
[2025-01-27] MEDS ORDERED: PHENOBARBITAL 16.2 MG PEG SCH (22:00)
[2025-01-27] MEDS: Lacosamide 50 MG/5 ML ORAL SOLUTION UNIT CUPS PEG SCH (22:39)
[2025-01-27] MEDS: POLYETHYLENE GLYCOL (HEALTHYLAX) 3350 17 GM PACKET PEG SCH (22:39)
[2025-01-27] MEDS: levETIRAcetam 500 MG/5 ML ORAL SOLUTION (UNIT-DOSE CUPS) PEG SCH (22:39)
[2025-01-27] MEDS: GABAPENTIN 250 MG/5 ML ORAL SOLUTION, 470 ML BOTTLE PEG SCH (22:40)
[2025-01-27] MEDS: PHENOBARBITAL PEG SCH (23:19)
[2025-01-28] MEDS: CHOLECALCIFEROL (VIT D3) 1,000 UNIT (25 MCG) TABLET GT SCH (10:17)
[2025-01-28] MEDS: THIAMINE 100 MG TABLET GT SCH (10:18)
[2025-01-28] MEDS: PYRIDOXINE HCL (B-6) 50 MG TABLET (FP) PEG SCH (10:19)
[2025-01-28 11:16] VITALS: RESP 18
[2025-01-28] MEDS: RIVAROXABAN 10 MG TABLET PEG SCH (17:45)
[2025-01-28 20:53] VITALS: BP 119/75; PULSE 77; TEMP 97.3
== END 2025-01-28 23:55 | disposition home or self-care (01) ==
LOC: JER 00:20 → JERBED 01:02 → J6S 05:16
PROVIDERS: ADMIT Student in an Organized Health Care Education/Training Program; ATTEND Internal Medicine
PROC: 0DH64UZ Insertion of Feeding Device into Stomach, Percutaneous Endoscopic Approach (ICD-10-PCS; principal; 2025-01-27)
PROC: 3E033GC Introduction of Other Therapeutic Substance into Peripheral Vein, Percutaneous Approach (ICD-10-PCS; 2025-01-27)
PROC: 3E023NZ Introduction of Analgesics, Hypnotics, Sedatives into Muscle, Percutaneous Approach (ICD-10-PCS; 2025-01-27)
DX: K94.20 Gastrostomy complication, unspecified (principal); F79 Unspecified intellectual disabilities; G40.919 Epilepsy, unspecified, intractable, without status epilepticus; Z86.718 Personal history of other venous thrombosis and embolism; Z79.01 Long term (current) use of anticoagulants
CPT/HCPCS: 36415; 49440; 74176-TC; 80053; 83735; 84702; 85025; 85610; 85730; 93005; 93010; 96372; 96374; 96375; 99285-25; G0378